=== PATIENT | female | born 1960 | race American Indian/Alaskan Native ===

== ENCOUNTER 2017-06-02 17:38 | Observation (INO) | payer BC ==
--- NOTE | 2017-06-02 17:43 | ED PDOC ---
Arrival/HPI - General Time Seen by Provider: 06/02/17 17:42 Historian: Patient - History of Present Illness Narrative History of Present Illness (Text): 06/02/17 17:42 A 56 year old female, whose past medical history includes liver transplant, and chronic lower back pain, brought into the emergency department by EMS for weakness and difficulty speaking. Patient last known well time was before bed as she reports waking up at 7am with these symptoms. Reports that she felkt difficulty speaking and walking. Saw her PMD who sent her into the ED for evaluation of CVA. Patient denies any trauma, fever, chills, nausea, vomiting, abdominal pain, urinary symptoms, chest pain, shortness of breath or any other complaints. PMD: Dr. Martin 06/02/17 20:58 Time/Duration: Other (this morning) Symptom Course: Worsening Quality: Other Context: Home Past Medical History - Provider Review Nursing Documentation Reviewed: Yes - Tetanus Immunization Tetanus Immunization: Unknown - Cardiac Hx Hypertension: Yes - Gastrointestinal Other/Comment: Auto-immune liver disease - Psychiatric Hx Substance Use: No - Surgical History Other/Comment: Liver transplant (2010) - Suicidal Assessment Feels Threatened In Home Enviroment: No Family/Social History - Physician Review Nursing Documentation Reviewed: Yes Family/Social History: No Known Family HX Hx Alcohol Use: No Hx Substance Use: No Hx Substance Use Treatment: No Allergies/Home Meds Allergies/Adverse Reactions: Allergies No Known Allergies Allergy (Verified 05/14/14 15:15) Home Medications: Home Meds Medication Instructions Recorded Confirmed Amlodipine Bes/Olmesartan Med 1 tab PO DAILY 05/14/14 05/14/14 [Anel 5 mg-20 mg] Metoprolol Succinate [Metoprolol 25 mg PO DAILY 05/14/14 05/14/14 Succinate] Review of Systems - Physician Review All systems were reviewed & negative as marked: Yes - Review of Systems Constitutional: absent: Fevers, Night Sweats Respiratory: absent: SOB Cardiovascular: absent: Chest Pain Gastrointestinal: absent: Abdominal Pain, Nausea, Vomiting Genitourinary Female: absent: Dysuria, Frequency, Hematuria Musculoskeletal: Back Pain Neurological: Gait Changes, Speech Changes. absent: Headache, Dizziness Physical Exam Vital Signs Reviewed: Yes Vital Signs Temp Pulse Resp BP Pulse Ox 06/02/17 18:11 66 18 133/73 98 06/02/17 17:43 97.6 F 65 18 149/93 H 100 Temperature: Afebrile Blood Pressure: Hypertensive Pulse: Regular Respiratory Rate: Normal Appearance: Positive for: Well-Appearing, Non-Toxic, Comfortable Pain Distress: None Mental Status: Positive for: Alert and Oriented X 3 Finger Stick Blood Glucose: 94 - Systems Exam Head: Present: Atraumatic, Normocephalic Pupils: Present: PERRL Extroacular Muscles: Present: EOMI Conjunctiva: Present: Normal Mouth: Present: Moist Mucous Membranes Neck: Present: Normal Range of Motion Respiratory/Chest: Present: Clear to Auscultation, Good Air Exchange. No: Respiratory Distress, Accessory Muscle Use Cardiovascular: Present: Regular Rate and Rhythm, Normal S1, S2. No: Murmurs Abdomen: Present: Normal Bowel Sounds. No: Tenderness, Distention, Peritoneal Signs Back: Present: Normal Inspection Upper Extremity: Present: Normal Inspection, Normal ROM, NORMAL PULSES. No: Cyanosis, Edema Lower Extremity: Present: Normal Inspection, NORMAL PULSES, Normal ROM. No: Edema Neurological: Present: GCS=15, CN II-XII Intact, Speech Normal, Motor Func Grossly Intact, Normal Sensory Function, Gait Normal Skin: Present: Warm, Dry, Normal Color. No: Rashes Psychiatric: Present: Alert, Oriented x 3, Normal Insight, Normal Concentration Medical Decision Making ED Course and Treatment: 06/02/17 17:42 Impression: A 56 year old female with worsening lower back pain. On evaluation, patient is able to ambulate without difficulty. Plan: -- Head CT -- Chest xray -- EKG -- Labs -- Urinalysis -- IV fluids -- Reassess and disposition Progress Notes: EKG shows NSR at 65 BPM with normal intervals, no ST changes. Interpreted by me. Report Date : 06/02/2017 20:43:00 EXAM: CT Head Without Intravenous Contrast Dictator : Nicho Lomax MD IMPRESSION: 1. No definite acute intracranial abnormality. 2. Incidental/non-acute findings are described above. 06/02/17 21:00 Trop negative. Patient is at baseline neurologically and speech is improved from arrival. Now NIHSS 0 from 1. Presentation concerning for tia. [facility] under hispitalist. 06/02/17 21:02 - Lab Interpretations Lab Results: 06/02/17 18:00 06/02/17 18:00 Lab Results 06/02/17 18:21: Blood Type O POSITIVE, Antibody Screen Negative, BBK History Checked No verified bt 06/02/17 18:03: POC Glucose (mg/dL) 94 06/02/17 18:00: Sodium 143, Potassium 3.7, Chloride 108 H, Carbon Dioxide 25, Anion Gap 14, BUN 13, Creatinine 0.8, Est GFR ( Amer) > 60, Est GFR (Non- Af Amer) > 60, Random Glucose 94, Calcium 9.8, Phosphorus 3.9, Magnesium 1.7, Total Bilirubin 0.2, AST 24, ALT 22, Alkaline Phosphatase 93, Troponin I < 0.01 , NT-Pro-B Natriuret Pep 84.3, Total Protein 7.7, Albumin 4.2, Globulin 3.5, Albumin/Globulin Ratio 1.2 06/02/17 18:00: PT 11.9, INR 1.00, APTT 29.7 06/02/17 18:00: WBC 7.6 D, RBC 4.34, Hgb 11.7 L, Hct 36.3, MCV 83.6, MCH 27.0, MCHC 32.2, RDW 14.2, Plt Count 269, MPV 8.8, Gran % 50.1, Lymph % (Auto) 43.6 H , [place] % (Auto) 4.6, Eos % (Auto) 1.6, Baso % (Auto) 0.1, Gran # 3.82, Lymph # 3.3, [place] # 0.4, Eos # 0.1, Baso # 0.01 - RAD Interpretation Radiology Orders: 06/02/17 17:43 HEAD W/O CONTRAST [CT] Stat CHEST PORTABLE [RAD] Stat - Medication Orders Current Medication Orders: Discontinued Medications Aspirin (Aspirin Chewable) 324 mg PO STAT STA Stop: 06/02/17 20:59 Sodium Chloride (Sodium Chloride 0.9%) 500 mls @ 999 mls/hr IV .Q31M STA Stop: 06/02/17 18:14 Last Admin: 06/02/17 18:03 Dose: 999 mls/hr eMAR Start Stop Document 06/02/17 18:03 HI (Rec: 06/02/17 18:24 AL [id number]) Intravenous Solution Start Date 06/02/17 Start Time 18:03 NIHSS Scale ([place]) Time Performed: 21:02 - How Severe is the Stoke Baseline Level of Consciousness: 0=Alert LOC to Questions: 0=Both comments correct LOC to commands: 0=Obeys both correctly Best Gaze: 0=Normal Visual: 0=No visual loss Facial: 0=Normal Motor Arm - Left: 0=No drift Motor Arm - Right: 0=No drift Motor Leg - Left: 0=No drift Motor Leg - Right: 0=No drift Limb Ataxia: 0=Absent Sensory: 0=Normal Best Language: 0=No aphasia Dysarthia: 1=Mild to moderate slurring Extinction & Inattention (Neglect): 0=Normal, no object Score: 1 Risk Level: Minor Stroke Risk rTPA Inclusion/Exclusion - Refusal of Treatment Patient Refused Treatment: No - Inclusion Criteria for Altepase Patient is 18 years or Older: Yes The Clinical Diagnosis of Ischemic Stroke That is Causing a Potentially Disabling Neurological Deficit: No Time of Onset is Well Established to be Less Than 270 Minute Before Treatment Would Begin: No Risk/Benefit Discussed With Patient/Family Member Present: No - Scribe Statement The provider has reviewed the documentation as recorded by the Adali Spann Provider Scribe Attestation: All medical record entries made by the Scribe were at my direction and personally dictated by me. I have reviewed the chart and agree that the record accurately reflects my personal performance of the history, physical exam, medical decision making, and the department course for this patient. I have also personally directed, reviewed, and agree with the discharge instructions and disposition. Disposition/Present on Arrival - Present on Arrival Any Indicators Present on Arrival: No History of DVT/PE: No History of Uncontrolled Diabetes: No Urinary Catheter: No History Surgical Site Infection Following: None - Disposition Have Diagnosis and Disposition been Completed?: Yes Diagnosis: Slurred speech Disposition: HOSPITALIZED Disposition Time: 21:03 Patient Plan: Observation Patient Problems: Current Active Problems Problem Status Onset Slurred speech Acute Condition: FAIR Referrals: Evangelina Martin MD [Primary Care Provider] - Follow up with primary
[2017-06-02] MEDS ORDERED: Sodium Chloride 0.9% 500 ML IV STA (17:44)
[2017-06-02 17:45] VITALS: BMI 36.8
[2017-06-02 18:18] LABS: BASO # 0.01 K/mm3 (0.0-2.0); BASO % 0.1 % (0.0-3.0); EOS # 0.1 (0.0-0.7); EOS % 1.6 % (1.5-5.0); GRAN # 3.82 (1.4-6.5); GRAN % 50.1 % (50.0-68.0); HEMOGLOBIN 11.7 g/dL (12.0-16.0); LYMPH # 3.3 (1.2-3.4); LYMPH % 43.6 % (22.0-35.0); MEAN CELL VOLUME 83.6 fl (80.0-105.0); MEAN CORPUSCULAR HGB CONC 32.2 g/dl (31.0-37.0); MEAN PLATELET VOLUME 8.8 fl (7.0-11.0); MONO # 0.4 (0.1-0.6); MONO % 4.6 % (1.0-6.0); RBC 4.34 10^6/uL (3.5-6.1); RED CELL DISTRIBUTION WIDTH 14.2 % (11.5-14.5); WHITE BLOOD COUNT 7.6 10^3/ul (4.5-11.0)
[2017-06-02 18:32] LABS: PARTIAL THROMBOPLASTIN TIME 29.7 Seconds (25.1-36.5); PROTHROMBIN TIME 11.9 SECONDS (9.4-12.5)
[2017-06-02 18:38] LABS: ALB/GLOB RATIO 1.2 (1.1-1.8); ALBUMIN 4.2 g/dL (3.0-4.8); ALT/SGPT 22 U/L (7-56); AST/SGOT 24 U/L (14-36); BLOOD UREA NITROGEN 13 mg/dL (7-21); CALCIUM 9.8 mg/dL (8.4-10.5); GFR AFRICAN-AMERICAN > 60; GFR NON-AFRICAN AMERICAN > 60; MAGNESIUM 1.7 mg/dL (1.7-2.2)
[2017-06-02 18:43] LABS: B-TYPE NATRIURETIC PEPTIDE 84.3 pg/mL (0-450); TROPONIN I < 0.01 ng/mL
--- NOTE | 2017-06-02 20:44 | CT ---
EXAM: CT Head Without Intravenous Contrast CLINICAL HISTORY: 56 years old, female; Signs and symptoms; Malaise or fatigue; Additional info: Fatigued TECHNIQUE: Axial computed tomography images of the head/brain without intravenous contrast. All CT scans at this facility use one or more dose reduction techniques, viz.: automated exposure control; ma/kV adjustment per patient size (including targeted exams where dose is matched to indication; i.e. head); or iterative reconstruction technique. Coronal and sagittal reformatted images were created and reviewed. COMPARISON: No relevant prior studies available. FINDINGS: Brain: Minimal atrophy. No intracranial hemorrhage. No mass. No definite edema. Ventricles: No hydrocephalus. Bones/joints: No acute fracture. Soft tissues: Unremarkable. Vasculature: Few foci of air about cavernous sinus, nonspecific but possibly iatrogenic. Sinuses: No acute sinusitis. Mastoid air cells: No mastoid effusion. Orbits: Unremarkable as visualized. IMPRESSION: 1. No definite acute intracranial abnormality. 2. Incidental/non-acute findings are described above.
[2017-06-02 21:18] LABS: URINE BILIRUBIN NEGATIVE (NEGATIVE); URINE BLOOD NEGATIVE (NEGATIVE); URINE GLUCOSE (UA) NEGATIVE (NEGATIVE); URINE LEUKOCYTE ESTERASE MODERATE Leu/uL (NEGATIVE); URINE NITRATE NEGATIVE (NEGATIVE); URINE PROTEIN NEGATIVE mg/dL (<30 mg/dL); URINE UROBILINOGEN 0.2 E.U./dL (<1 E.U./dL)
[2017-06-02 21:21] LABS: URINE APPEARANCE CLEAR (CLEAR); URINE COLOR YELLOW (YELLOW)
[2017-06-02 21:45] LABS: URINE RBC 0 - 2 /hpf (0-2)
[2017-06-02 21:46] LABS: URINE BACTERIA FEW (NEG); URINE EPITHELIAL CELLS 0 - 2 /hpf (0-5)
[2017-06-02 22:59] LABS: BARBITURATES, UR NEGATIVE (NEGATIVE); BENZODIAZEPINES, UR NEGATIVE (NEGATIVE); OPIATES, UR NEGATIVE (NEGATIVE); PHENCYCLIDINE, UR NEGATIVE (NEGATIVE)
--- NOTE | 2017-06-03 00:28 | CP.PCM.HP ---
History of Present Illness - History of Present Illness History of Present Illness: Ms. Bruce is a 56 year old AAF with a past medical history significant for HTN, chronic LBP and liver transplant who presents with one episode of LE weakness, confusion and increased somnolence earlier this morning approximately 12 hours [employer]. Patient reports that she awoke at 0600 on 06/02 in her normal state of health. She began getting ready for work and sat down at her kitchen table at approximately 0700 when she suddenly felt confused and somnolent. She states that she recalls calling her place of employment to inform them that she would not be able to come into work immediately after but then does not recall anything until she awoke at her kitchen table at approximately 1300. When she awoke, she stood up from the table to walk upstairs but experienced extreme weakness in both of her lower extremities requiring her to use the stair railing to remain upright. She then drove herself to an Urgent Care facility, as her PMD was not in his office, where she was told that she would need to be evaluated at the hospital which prompted her to come to the [facility] ED. She endorses dysarthria and blurry vision throughout this period and for an hour after she arrived to the [facility] ED. She denies any associated falls, syncope, chest pain, palpitations, or SOB. In the ED, patient was found to be afebrile and HDS with a CT head, EKG and chest x-ray showing no acute abnormalities. A CBC, CMP, UA and UDS also showed no significant abnormalities. Currently, patient is alert and oriented to person, place, time and event and also without facial droop or dysarthria. She denies ever having the previously mentioned symptoms ever before in the past. She denies fever, chills, headache, changes in her vision, rhinorrhea, ear pain/discharge, sore throat, dysphagia, emma pain, palpitations, leg swelling, orthopnea, SOB, cough, hemoptysis, abdominal pain, N/V, diarrhea, constipation, melena, hematochezia, burning/pain with urination, urinary frequency, hematuria, skin changes, joint pain, or any numbness/tingling/weakness of any extremity. 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 Martin Rn Visiting: Dr. Castillo Present on Admission - Present on Admission Any Indicators Present on Admission: No Review of Systems - Review of Systems Review of Systems: As stated in HPI, otherwise negative Past Patient History - Tetanus Immunizations Tetanus Immunization: Unknown - Past Social History Smoking Status: Never Smoked - CARDIAC Hx Hypertension: Yes - GASTROINTESTINAL Other/Comment: Auto-immune liver disease - PSYCHIATRIC Hx Substance Use: No - SURGICAL HISTORY Other/Comment: Liver transplant (2010) Meds Allergies/Adverse Reactions: Allergies Allergy/AdvReac Type Severity Reaction Status Date / Time No Known Allergies Allergy Verified 05/14/14 15:15 Physical Exam - Constitutional Appears: Non-toxic, No Acute Distress - Head Exam Head Exam: ATRAUMATIC, NORMAL INSPECTION, NORMOCEPHALIC - Eye Exam Eye Exam: EOMI, Normal appearance, PERRL. absent: Conjunctival injection, Nystagmus, Periorbital swelling, Periorbital tenderness, Scleral icterus Pupil Exam: NORMAL ACCOMODATION, PERRL. absent: Fixed, Irregular, Miosis, Mydriatic, Unequal - ENT Exam ENT Exam: Mucous Membranes Moist, Normal Exam, Normal External Ear Exam, Normal Oropharynx - Neck Exam Neck exam: Positive for: Full Rom, Normal Inspection. Negative for: Lymphadenopathy, Meningismus, Tenderness, Thyromegaly - Respiratory Exam Respiratory Exam: Wheezes (Mild, end expiratory and located in the upper lung dahs bilaterally), NORMAL BREATHING PATTERN. absent: Accessory Muscle Use, Chest Wall Tenderness, Decreased Breath Sounds, Clear to Auscultation Bilateral , Prolonged Expiratory Phase, Rales, Rhonchi, Respiratory Distress, Stridor - Cardiovascular Exam Cardiovascular Exam: REGULAR RHYTHM, RRR, +S1, +S2. absent: Bradycardia, Tachycardia, Clicks, Diastolic murmur, Gallop, Irregular Rhythm, JVD, Rubs, +S4 , Systolic Murmur - GI/Abdominal Exam GI & Abdominal Exam: Normal Bowel Sounds, Soft. absent: Bruit, Diminished Bowel Sounds, Distended, Firm, Guarding, Hernia, Hyperactive Bowel Sounds, Hypoactive Bowel Sounds, Mass, Organomegaly, Pulsatile Mass, Rebound, Rigid, Tenderness Additional comments: Scar in RUQ representing open liver transplant surgery - Extremities Exam Extremities exam: Positive for: full ROM, normal capillary refill, normal inspection, pedal pulses present. Negative for: calf tenderness, joint swelling , pedal edema, tenderness - Back Exam Back exam: FULL ROM, NORMAL INSPECTION, tenderness. absent: CVA tenderness (L) , CVA tenderness (R), muscle spasm, paraspinal tenderness, rash noted, vertebral tenderness - Neurological Exam Neurological exam: Alert, CN II-XII Intact, Normal Gait, Oriented x3, Reflexes Normal - Psychiatric Exam Psychiatric exam: Normal Affect, Normal Mood - Skin Skin Exam: Dry, Intact, Normal Color, Warm Results - Vital Signs Recent Vital Signs: Last Vital Signs Temp 98.4 F 06/03/17 00:00 Pulse 59 L 06/03/17 00:00 Resp 20 06/03/17 00:00 BP 115/69 06/03/17 00:00 Pulse Ox 96 06/03/17 00:00 - Labs Result Diagrams: 06/02/17 18:00 06/02/17 18:00 Labs: Laboratory Results - last 24 hr 06/02/17 22:33 Urine Opiates Screen Negative Urine Methadone Screen Negative Ur Barbiturates Screen Negative Ur Phencyclidine Scrn Negative Ur Amphetamines Screen Negative U Benzodiazepines Scrn Negative U Oth Cocaine Metabols Negative U Cannabinoids Screen Negative - EKG Data EKG Interpreted by: ER Physician EKG shows normal: Sinus rhythm, Intervals, ST-T waves Rate: Normal Assessment & Plan - Assessment and Plan (Free Text) Assessment: 56 year old AAF with a past medical history significant for HTN, chronic LBP and liver transplant who presents with one episode of LE weakness, confusion and increased somnolence earlier this morning approximately 12 hours [employer]. In the ED, patient was found to be afebrile and HDS with a CT head, EKG and chest x -ray showing no acute abnormalities. A CBC, CMP, UA and UDS also showed no significant abnormalities. Patient noted to have an NIHSS score of 1 on arrival and currently with an NIHSS score of 0. Plan: 1. TIA -CT Head showing no acute intracranial abnormality; Chest X-Ray pending radiologist interpretation -EKG showing NSR at -CBC, CMP, UA, UDS without any significant abnormalities -Raji-Hallpike negative -Repeat CT Head in AM -Lipid panel pending -Echo, Carotid/Vertebral Duplex and Orthostatic VS pending -Neurochecks Q4H -Fall risk precautions -Nursing swallow screen passed -Neurology consulted 2. Wheezing -Chest X-Ray pending radiologist interpretation -Duonebs 3ml IH [id number] GI Prophylaxis: Protonix DVT Prophylaxis: SCD's Diet: Heart Healthy Patient seen and case discussed with attending, Dr. Emiliano Rivera. - Date & Time Date: 06/02/17 Time: 11:00 Decision To Admit - Pt Status Changed To: Hospital Disposition Of: Observation - . Bed Request Type: Telemetry
[2017-06-03] MEDS: Albuterol-Ipratrop 3 mg / 0.5 (3 ml) UD IH SCH ×4 (01:30→20:13)
[2017-06-03] MEDS: Pantoprazole 40 mg EC Tab PO SCH (06:54)
[2017-06-03 07:22] LABS: BASO # 0.01 K/mm3 (0.0-2.0); BASO % 0.1 % (0.0-3.0); EOS # 0.1 (0.0-0.7); EOS % 0.9 % (1.5-5.0); GRAN # 3.89 (1.4-6.5); HEMOGLOBIN 11.3 g/dL (12.0-16.0); LYMPH # 2.7 (1.2-3.4); LYMPH % 38.7 % (22.0-35.0); MEAN CELL VOLUME 82.9 fl (80.0-105.0); MEAN CORPUSCULAR HEMOGLOBIN 26.5 pg (25.0-35.0); MEAN CORPUSCULAR HGB CONC 31.9 g/dl (31.0-37.0); MEAN PLATELET VOLUME 8.4 fl (7.0-11.0); MONO # 0.3 (0.1-0.6); MONO % 4.3 % (1.0-6.0); RBC 4.27 10^6/uL (3.5-6.1); RED CELL DISTRIBUTION WIDTH 14.1 % (11.5-14.5)
[2017-06-03 07:33] LABS: ALB/GLOB RATIO 1.2 (1.1-1.8); ALT/SGPT 25 U/L (7-56); AST/SGOT 21 U/L (14-36); BLOOD UREA NITROGEN 9 mg/dL (7-21); CALCIUM 9.6 mg/dL (8.4-10.5); GFR AFRICAN-AMERICAN > 60; GFR NON-AFRICAN AMERICAN > 60; HDL CHOLESTEROL 33 mg/dL (29-60)
[2017-06-03 07:39] LABS: LDL CHOLESTEROL 133 mg/dL (0-129)
--- NOTE | 2017-06-03 09:50 | RAD ---
HISTORY: fatigued COMPARISON: No prior. FINDINGS: LUNGS: No active pulmonary disease. PLEURA: No significant pleural effusion identified, no pneumothorax apparent. CARDIOVASCULAR: Normal. OSSEOUS STRUCTURES: No significant abnormalities. VISUALIZED UPPER ABDOMEN: Normal. OTHER FINDINGS: None. IMPRESSION: No active disease.
--- NOTE | 2017-06-03 11:35 | CP.PCM.CON ---
History of Present Illness - History of Present Illness History of Present Illness: 56 yr old woman who is here for dysarthria and loss of consciousness yesterday morning. She was not found to have urinary incontinence, or any signs of seizure, but did have persistent left arm weakness that resolved. She was not a TPA candidate but continues to have dysarthria and is here for stroke workup. Full consult is dictated. Please see dictation for further details. Past Patient History - Tetanus Immunizations Tetanus Immunization: Unknown - Past Social History Smoking Status: Never Smoked - CARDIAC Hx Hypertension: Yes - MUSCULOSKELETAL/RHEUMATOLOGICAL Hx Falls: No - GASTROINTESTINAL Other/Comment: Auto-immune liver disease - PSYCHIATRIC Hx Substance Use: No - SURGICAL HISTORY Other/Comment: Liver transplant (2010) Meds Allergies/Adverse Reactions: Allergies Allergy/AdvReac Type Severity Reaction Status Date / Time No Known Allergies Allergy Verified 05/14/14 15:15 - Medications Medications: Current Medications Albuterol/Ipratropium (Duoneb 3 Mg/0.5 Mg (3 Ml) Ud) 3 ml IH [id number] [facility] Last Admin: 06/03/17 08:29 Dose: 3 ml Atorvastatin Calcium (Lipitor) 40 mg PO DIN ODETTE Pantoprazole Sodium (Protonix Ec Tab) 40 mg PO 0600 [facility] Last Admin: 06/03/17 06:54 Dose: 40 mg Tacrolimus (Prograf Cap) 1 mg PO Q12 [facility] Results - Vital Signs Recent Vital Signs: Last Vital Signs Temp 98.4 F 06/03/17 06:00 Pulse 80 06/03/17 06:00 Resp 20 06/03/17 06:00 BP 103/63 06/03/17 06:00 Pulse Ox 99 06/03/17 06:00 - Labs Result Diagrams: 06/03/17 07:05 06/03/17 07:05 Labs: Laboratory Results - last 24 hr 06/02/17 06/02/17 06/03/17 22:33 23:28 07:05 WBC RBC Hgb Hct MCV MCH MCHC RDW Plt Count MPV Gran % Lymph % (Auto) [place] % (Auto) Eos % (Auto) Baso % (Auto) Gran # Lymph # [place] # Eos # Baso # ESR Sodium Potassium Chloride Carbon Dioxide Anion Gap BUN Creatinine Est GFR ( Amer) Est GFR (Non-Af Amer) POC Glucose (mg/dL) 116 H Random Glucose Calcium Total Bilirubin AST ALT Alkaline Phosphatase Total Protein Albumin Globulin Albumin/Globulin Ratio Triglycerides Cholesterol LDL Cholesterol Direct HDL Cholesterol Urine Opiates Screen Negative Urine Methadone Screen Negative Ur Barbiturates Screen Negative Ur Phencyclidine Scrn Negative Ur Amphetamines Screen Negative U Benzodiazepines Scrn Negative U Oth Cocaine Metabols Negative U Cannabinoids Screen Negative Blood Type Confirm O POSITIVE 06/03/17 06/03/17 06/03/17 07:05 07:05 08:00 WBC 7.0 RBC 4.27 Hgb 11.3 L Hct 35.4 L MCV 82.9 MCH 26.5 MCHC 31.9 RDW 14.1 Plt Count 246 MPV 8.4 Gran % 56.0 Lymph % (Auto) 38.7 H [place] % (Auto) 4.3 Eos % (Auto) 0.9 L Baso % (Auto) 0.1 Gran # 3.89 Lymph # 2.7 [place] # 0.3 Eos # 0.1 Baso # 0.01 ESR 45 H Sodium 142 Potassium 3.7 Chloride 108 H Carbon Dioxide 23 Anion Gap 14 BUN 9 Creatinine 0.8 Est GFR ( Amer) > 60 Est GFR (Non-Af Amer) > 60 POC Glucose (mg/dL) Random Glucose 81 Calcium 9.6 Total Bilirubin 0.4 AST 21 ALT 25 Alkaline Phosphatase 93 Total Protein 7.4 Albumin 4.0 Globulin 3.4 Albumin/Globulin Ratio 1.2 Triglycerides 154 Cholesterol 190 LDL Cholesterol Direct 133 H HDL Cholesterol 33 Urine Opiates Screen Urine Methadone Screen Ur Barbiturates Screen Ur Phencyclidine Scrn Ur Amphetamines Screen U Benzodiazepines Scrn U Oth Cocaine Metabols U Cannabinoids Screen Blood Type Confirm 06/03/17 08:12 WBC RBC Hgb Hct MCV MCH MCHC RDW Plt Count MPV Gran % Lymph % (Auto) [place] % (Auto) Eos % (Auto) Baso % (Auto) Gran # Lymph # [place] # Eos # Baso # ESR Sodium Potassium Chloride Carbon Dioxide Anion Gap BUN Creatinine Est GFR ( Amer) Est GFR (Non-Af Amer) POC Glucose (mg/dL) 75 Random Glucose Calcium Total Bilirubin AST ALT Alkaline Phosphatase Total Protein Albumin Globulin Albumin/Globulin Ratio Triglycerides Cholesterol LDL Cholesterol Direct HDL Cholesterol Urine Opiates Screen Urine Methadone Screen Ur Barbiturates Screen Ur Phencyclidine Scrn Ur Amphetamines Screen U Benzodiazepines Scrn U Oth Cocaine Metabols U Cannabinoids Screen Blood Type Confirm Assessment & Plan - Assessment and Plan (Free Text) Plan: 56 y rold woman with differential of ischemic stroke in [place] region, or with psych overlay, seizure, who is here for stroke workup. She has high risk factors in light of liver transplant, hypertension, and age. We will order stroke workup and follow. Please see dictation for further Plan: 1. MRi Brain 2. Carotid Dopplers 3. Keep BP at around 180-190/90 4. Aspirin 325 mg po daily 5. Hold BP meds 6. IV fluids normal saline 100 ccs per hour 7. stroke in a young person workup: protein c protein s antithrombin 3 factor 5 leiden 8. pt/st 9. If mri shows stroe, would do bubble study for pfo.
[2017-06-03] MEDS ORDERED: Iodixanol 320 mg/ml 150 ml Bottle IV ONE (13:43)
--- NOTE | 2017-06-03 15:39 | CT ---
PROCEDURE: CT Angiography of the neck with contrast HISTORY: TIA COMPARISON: None available. TECHNIQUE: Contiguous axial images of the neck were obtained from the level of the skull-base to the superior mediastinum in the arteriographic phase of enhancement. Coronal and sagittal reformats or also generated. IV contrast dose: Radiation Dose - DLP: mGy-cm This CT exam was performed using one or more of the following dose reduction techniques: Automated exposure control, adjustment of the mA and/or kV according to patient size, and/or use of iterative reconstruction technique. FINDINGS: RIGHT CAROTID ARTERIES: Common Carotid Artery: Normal. Carotid Bifurcation: Normal. Internal Carotid Artery:Normal. External Carotid Artery (proximal branches): Normal. LEFT CAROTID ARTERIES: Common Carotid Artery: Normal. Carotid Bifurcation: Normal. Internal Carotid Artery:Normal. External Carotid Artery (proximal branches): Normal. VERTEBRAL ARTERIES: Right Vertebral Artery: Normal. Left Vertebral Artery: Normal. OTHER FINDINGS: None. IMPRESSION: Normal CT Angiography of the neck. PROCEDURE: CT Angiography of the Brain. HISTORY: TIA COMPARISON: None available. TECHNIQUE: CT angiography of the intracranial arteries was performed. Coronal and sagittal maximum intensity projection reformated images were generated. This CT exam was performed using one or more of the following dose reduction techniques: Automated exposure control, adjustment of the mA and/or kV according to patient size, and/or use of iterative reconstruction technique. FINDINGS: INTERNAL CEREBRAL ARTERIES: Unremarkable. The skull base, petrous, cavernous and supraclinoid segments are bilaterally widely patent. ANTERIOR CEREBRAL ARTERIES: Unremarkable. A1 and A2 segments are widely patent. Smaller distal branches unremarkable, as visualized. MIDDLE CEREBRAL ARTERIES: Unremarkable. M1 and M2 segments are widely patent. Perisylvian branches grossly symmetric. POSTERIOR CIRCULATION: Basilar Artery: Unremarkable. Distal Vertebral Arteries: Unremarkable. Posterior Cerebral Arteries: Unremarkable. Posterior Inferior Cerebellar Arteries: Unremarkable. ANEURYSM/ VASCULAR MALFORMATIONS: None. OTHER FINDINGS: None. IMPRESSION: Unremarkable CT Angiography of the Brain.
--- NOTE | 2017-06-03 15:55 | US ---
PROCEDURE: Bilateral carotid artery duplex ultrasound HISTORY: Carotid stenosis TIA PHYSICIAN(S): Catrachito Shane MD. TECHNIQUE: Duplex sonography and color-flow Doppler were used to evaluate the carotid bifurcations and limited segments of the vertebral arteries bilaterally. FINDINGS: There is mild smooth heterogeneous plaque noted at the carotid bifurcations bilaterally. The peak systolic velocity in the proximal right internal carotid artery is 63 cm/sec. This corresponds to a 20 to 39% proximal right ICA stenosis. Normal systolic velocities are noted in the proximal right external carotid artery. There is antegrade flow in the right vertebral artery. The peak systolic velocity in the proximal left internal carotid artery is 77 cm/sec. This corresponds to a 20 to 39% proximal left ICA stenosis. Normal systolic velocities are noted in the proximal left external carotid artery. There is antegrade flow in the left vertebral artery. IMPRESSION: 1. Bilateral 20-39% proximal ICA stenoses. 2. Antegrade flow in both vertebral arteries.
--- NOTE | 2017-06-03 17:09 | CARD ---
APPROVED REPORT EXAM: Two-dimensional and M-mode echocardiogram with Doppler and color Doppler. INDICATION CVA/TIA 2D DIMENSIONS Left Atrium (2D)4.2 (1.6-4.0cm)IVSd1.2 (0.7-1.1cm) LVDd4.4 (3.9-5.9cm)PWd1.1 (0.7-1.1cm) LVDs3.3 (2.5-4.0cm)FS (%) 25.9 % LVEF (%)51.1 (>50%) M-Mode DIMENSIONS Aortic Root2.70 (2.2-3.7cm)Aortic Cusp Exc.1.60 (1.5-2.0cm) Aortic Valve AoV Peak Raxdkrkh930.0cm/Tanner Peak GR.12mmHg Mitral Valve MV E Nzoeyfbm02.9cm/sMV A Vujfvzdk41.6cm/sE/A ratio1.2 TDI Lateral E' Peak V11.80cm/sMedial E' Peak V9.85cm/sE/Lateral E'6.9 E/Medial E'8.3 Pulmonary Valve PV Peak Gxlwfccz39.5cm/sPV Peak Grad.2mmHg Tricuspid Valve TR Peak Zpjaoxkx576iv/sRAP [id number] Peak Gr.27mmHg [id number] LEFT VENTRICLE The left ventricle is normal size. There is borderline concentric left ventricular hypertrophy. Left ventricle systolic function is borderline. There is normal LV segmental wall motion. The left ventricular diastolic function is normal. RIGHT VENTRICLE The right ventricle is normal size. There is normal right ventricular wall thickness. The right ventricular systolic function is normal. ATRIA The left atrium is mildly dilated. The right atrium is mildly dilated. The atrial septum is aneurysmal. AORTIC VALVE The aortic valve is mildly thickened. No aortic regurgitation is present. There is no aortic valvular stenosis. MITRAL VALVE Mitral regurgitation is mild. TRICUSPID VALVE There is mild tricuspid regurgitation. There is mild pulmonary hypertension. GREAT VESSELS The aortic root is normal in size. The IVC is normal in size and collapses >50% with inspiration. PERICARDIAL EFFUSION There is no pericardial effusion. <Conclusion> The left ventricle is normal size. There is borderline concentric left ventricular hypertrophy. Left ventricle systolic function is borderline. There is normal LV segmental wall motion. The atrial septum is aneurysmal. Mitral regurgitation is mild. There is mild tricuspid regurgitation. There is mild pulmonary hypertension.
[2017-06-03] MEDS: Sodium Chloride 0.9% 1,000 ML IV SCH ×3 (17:51→22:27)
--- NOTE | 2017-06-03 18:48 | MRI ---
PROCEDURE: MRI BRAIN WITHOUT CONTRAST HISTORY: TIA COMPARISON: Comparison made with CT scan brain dated 06/02/2017. TECHNIQUE: Multiplanar, multisequence MR images of the brain were obtained without intravenous contrast enhancement. Study is limited by motion artifact. FINDINGS: HEMORRHAGE: No acute parenchymal, subarachnoid or extra-axial hemorrhage. No hemosiderin deposition is identified on gradient echo weighted sequence DWI: No evidence of an acute or early subacute infarction seen on diffusion imaging. . BRAIN PARENCHYMA: There is a tiny elliptical shaped focus of increased T2 signal in the left frontal subcortical white matter best seen on axial FLAIR sequence series 5, image number 17 that is nonspecific though may represent small chronic lacunar-type infarct however sequela of old trauma migraine headaches or post infectious/ inflammatory etiologies to be considered. No other definitive focal areas of abnormal signal seen. Ventricular and sulcal size are within range of normal this patient's stated age. Midline structures unremarkable. VENTRICLES: No obstructive hydrocephalus. CRANIUM: No acute calvarial ORBITS: Abnormalities orbits and contents unremarkable. 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 VASCULAR SYSTEM: Visualized major vascular flow voids at skull base patent. OTHER FINDINGS: None. IMPRESSION: Slightly limited motion degraded study. No acute intracranial hemorrhage or infarct. There is a tiny elliptical shaped focus of increased T2 signal left frontal subcortical white matter which nonspecific and of uncertain etiology though differential diagnosis would include tiny chronic lacunar type infarct, sequela of old trauma migraine headache or post infectious/ inflammatory etiologies.
--- NOTE | 2017-06-03 20:35 | CARD ---
APPROVED REPORT EKG Measurement Heart [id number] <Conclusion> Normal sinus rhythm Normal ECG
--- NOTE | 2017-06-04 02:46 | CON ---
DATE: NEUROLOGY CONSULTATION ATTENDING PROVIDER: Latasha Gonzales MD HISTORY OF PRESENT ILLNESS: Ms. Bruce is a 56-year-old right-handed woman with past medical history of hypertension, chronic low back pain, status post liver transplant, and status post autoimmune disease, etiology undefined, who presented with dysarthria and left extremity weakness. 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 Apparently, she lost consciousness for several minutes or several hours, we are not clear about the exact time of duration. When she stepped, she was able walk upstairs, but she had weakness in both of her legs, but she was somehow able to drive herself to an urgent care facility and then [facility]. In the Emergency Room, she had dysarthria and blurry vision. There was, however, no weakness noted. There was no headache. There was no nausea. There was no vomiting. There was no chest pain. There was no diaphoresis. There was no facial droop. This patient was not deemed to be a candidate due to the above findings. On examination today, the patient denies any headache. She is in an elevated mood. There is mild dysarthria noted, which fluctuates on and off, although her level of consciousness remains awake, alert, and oriented x3. PAST MEDICAL HISTORY: High blood pressure, chronic low back pain, liver transplant, and hyperlipidemia. PAST SURGICAL HISTORY: Liver transplant in 2010. FAMILY HISTORY: Mother has diabetes. There is no history of stroke in the young persons in her family. SOCIAL HISTORY: She does not smoke. There is no alcohol or illicit drug use. She lives at home with her mother. 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 ALLERGIES: NO KNOWN DRUG ALLERGIES. HOME MEDICATIONS: She is on albuterol, atorvastatin, pantoprazole, tacrolimus, aspirin, and sodium chloride. REVIEW OF SYSTEMS: As above. PHYSICAL EXAMINATION: VITAL SIGNS: As follows; temperature 98.4, pulse 59, respiratory rate 20, and blood pressure 115/96. GENERAL: She is alert and oriented x3. NEUROLOGIC: Pupils are 3 mm, equal and reactive to light. Extraocular movements are intact. Visual dash are full. Cranial nerves II through XII are normal. Speech is fluent. Mini mental state is 30/30. Clock drawing and pentagons are normal. There is no constructional, ideational or ideomotor apraxia. Motor: Tone is normal. Strength is normal in upper and lower bilaterally. There is some dysarthria noted, which fluctuates and returns to normal and once again becomes dysarthric. She can name and she can repeat well both simple and complex . Sensory is intact to fine touch, position, vibration sense. There is no extension. Cerebellar: [id number], there is dysmetria. There is a tardive dyskinesia. Gait is normal, is right base. There is no ataxia. Deep tendon reflexes are +1 in upper and lower bilaterally. Toes are downgoing. There is no clonus. LABORATORY DATA: Current labs; WBC is 7.6, hemoglobin 11.3, hematocrit 35.4, MCV 80.9, MCHC 31.1, platelet count 246, and lymphocytes at 38.7. ESR is 45. PT is 11.9, INR is 1.0, and PTT is 29.7. Sodium is 142, potassium is 3.7, chloride is 108, BUN is 9, and creatinine is 0.8. Cholesterol 190, LDL is 133, and HDL is 33. AST is 21, ALT is 25, and alkaline phosphatase is 93. Calcium is 11.8, phosphorus is 3.9, magnesium 1.7, and total bili is 0.2. Initial CT of the head was done and it showed the following; no definite acute intracranial abnormality, minimal atrophy, no intracranial hemorrhage, no mass or lesion. In addition, there is also iatrogenic. IMPRESSION: This is a 56-year-old right handed woman with differential of left middle cerebral artery Broca A1 division ischemic event/lacunar. It does appear that she has some fluctuating symptoms, which may be indicative of underlying anxiety. We will continue to complete stroke workup and further evaluate. PLAN: 1. MRI of the brain. 2. CTA. Carotid Dopplers, echo. If the MRI is normal, we will perform echo bubble study. In addition, we will do the following stroke in young person workup, protein C, protein S, antithrombin III factor, factor V Leiden, and von Willebrand factor as well. Start aspirin 325 mg p.o. daily. EEG as well in terms of loss of consciousness. Physical therapy and speech therapy is needed. DVT prophylaxis with subcu heparin. Thank you for this interesting consultation. We will continue to follow. Beck Joya MD
--- NOTE | 2017-06-04 04:32 | CON ---
DATE: 06/03/2017 She is being seen today for consultation. PRESENTATION: The patient is a 56-year-old -N[place] female, with average height and overweight, seen at bedside. The patient originally was admitted to the hospital for an episode of left-sided weakness, confusion, and increased somnolence. She has a past medical history of hypertension, chronic LVP, and post liver transplant. The psychiatric consultation was called for a question of whether or not the patient is malingering. When seen, the patient is cooperative. She is very positive in conversation, everything is fabulous. 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 She is able to support herself and she does enjoy her job. She denies ever being hospitalized psychiatrically, ever having any suicide attempts; however, she has been seeing Dr. Tori Berumen for many, many years for psychiatric medications. She indicates that she is on Lexapro t.i.d. She has had trouble since they have not ordered it for her. I reassured her that I will call her pharmacy which is the [facility] and get through her medications ordered for her. She indicates that her diagnosis is depression, really just a "serotonin thing." She indicates that she has been through family issues and counseling and she is just great. She does not want to go into what any of those issues might be, says everything is fine and she is doing very well. Medically, she is post liver transplant from 2010. She had that done at [facility]. She said it was just something that just happened. She has never abused alcohol or drugs. She did not have any kind of an illness. The 2% of the population this can happen to and it happened to her. She denies any past or current history of drugs or alcohol. She has no legal history, has never served in the , and denies any family history of any kind of psychiatric problems. The patient indicates that she is artistic and sensitive that she does not like to be involved with other people's drama. She grew up in [place], [place], and then her family moved to [place]. Her parents stayed together and everyone in her family is a professional, she shares with me. She is number two of five siblings and they are optical glass sawyer, they are teachers, and everyone has done very well. She indicates that her childhood was happy. She did very well in school. She had a lot of friends and took part in school activities. She had a regular education program and graduated on time. She indicated that she attended college and has a degree. She is not and has no children. 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 She wants to start a business for children. PHYSICAL EXAMINATION: VITAL SIGNS: Her current vital signs include a temperature of 98.4, pulse rate of 63, blood pressure of 130/76, respiratory rate of 20, and an O2 saturation of 99. In terms of new results, her last glucose level was 110. She is being worked up for any reason as to why should have had these symptoms when she came in and so far there has been no definitive answer according to the patient. MENTAL STATUS EXAM: The patient is alert and oriented x2. Her eye contact is good. Her behavior is cooperative. Her speech rate and volume are within normal limits. Her mood is expansive. Her affect is full. Her thoughts are somewhat goal directed, but there is a tangential and circumstantial quality to the conversation. She adamantly denies being suicidal or homicidal. She denies the presence of hallucinations, delusions or paranoia. Her concentration and her focus appears somewhat scattered to me. She feels it is fine. Her appetite, she indicates is normal, and she indicates that she is sleeping well. DIAGNOSTIC IMPRESSION: The patient indicates her previous diagnosis was depression. She has the appearance of hypomania today, so she may have a bipolar disorder in reality. PLAN: I called the [facility]. Her current medications are Seroquel 25 mg one-half at bedtime, which was filled on 05/24/2017 and Lexapro 10 mg three in the morning, which was filled on 05/17/2017, each was 30-day supply and that was from Dr. Berumen. She additionally was on blood pressure medications. This has not been filled after appointment in April, until and unless she was getting medications from somewhere else. She stopped taking her blood pressure medicines according to the pharmacist. I ordered this medication for the patient, so she should get the Seroquel tonight and Lexapro starting in the morning. The patient is not suicidal or homicidal, and so is not in any imminent danger of hurting herself or others. She does have the appearance of hypomania, but she is engaged in reality. She denies any psychotic symptoms, and again she is not suicidal or homicidal. She does appear to have limited judgment in terms of her illness, but she does appear to be able to at this point make her own decisions. I questioned the patient was to whether or not I could speak with any family members for collateral, and she was not willing to get me that information, indicates that she wants her privacy, which is so right. We will continue to follow the patient. Dr. Ryan will see her on the weekend. Thank you for the consult. Salina Valentin APN
[2017-06-04] MEDS: Sodium Chloride 0.9% 1,000 ML IV SCH (07:14)
[2017-06-04] MEDS: Pantoprazole 40 mg EC Tab PO SCH (07:16)
[2017-06-04 07:32] LABS: BASO # 0.01 K/mm3 (0.0-2.0); BASO % 0.1 % (0.0-3.0); EOS # 0.1 (0.0-0.7); EOS % 1.9 % (1.5-5.0); GRAN # 3.84 (1.4-6.5); HEMOGLOBIN 11.1 g/dL (12.0-16.0); LYMPH # 2.5 (1.2-3.4); LYMPH % 36.2 % (22.0-35.0); MEAN CORPUSCULAR HEMOGLOBIN 26.6 pg (25.0-35.0); MEAN CORPUSCULAR HGB CONC 32.1 g/dl (31.0-37.0); MEAN PLATELET VOLUME 8.6 fl (7.0-11.0); MONO # 0.4 (0.1-0.6); MONO % 5.8 % (1.0-6.0); RBC 4.17 10^6/uL (3.5-6.1); RED CELL DISTRIBUTION WIDTH 14.1 % (11.5-14.5); WHITE BLOOD COUNT 6.9 10^3/ul (4.5-11.0)
[2017-06-04 07:47] LABS: ALB/GLOB RATIO 1.2 (1.1-1.8); ALBUMIN 3.8 g/dL (3.0-4.8); ALT/SGPT 21 U/L (7-56); AST/SGOT 23 U/L (14-36); BLOOD UREA NITROGEN 9 mg/dL (7-21); CALCIUM 9.5 mg/dL (8.4-10.5); GFR AFRICAN-AMERICAN > 60; GFR NON-AFRICAN AMERICAN > 60
[2017-06-04] MEDS: Albuterol-Ipratrop 3 mg / 0.5 (3 ml) UD IH SCH ×2 (08:33→13:08)
[2017-06-04] MEDS ORDERED: Aspirin 325 mg EC Tablets PO SCH (10:00)
--- NOTE | 2017-06-04 12:54 | CP.PCM.PN ---
Subjective - Date & Time of Evaluation Date of Evaluation: 06/04/17 Time of Evaluation: 10:00 - Subjective Subjective: Patient is comfortable with no new complaints. No weakness, no headache, no numbness. Symptoms resolved. Objective - Vital Signs/Intake and Output Vital Signs (last 24 hours): Temp Pulse Resp BP Pulse Ox 98.3 F 67 18 138/80 100 06/04/17 06:00 06/04/17 06:00 06/04/17 06:00 06/04/17 06:00 06/04/17 06:00 Intake and Output: 06/04/17 06/04/17 06:59 18:59 Intake Total 1620 Balance 1620 - Medications Medications: Current Medications Albuterol/Ipratropium (Duoneb 3 Mg/0.5 Mg (3 Ml) Ud) 3 ml IH [id number] [facility] Last Admin: 06/04/17 08:33 Dose: 3 ml Aspirin (Ecotrin) 325 mg PO DAILY [facility] Last Admin: 06/04/17 10:30 Dose: 325 mg Atorvastatin Calcium (Lipitor) 40 mg PO DIN [facility] Last Admin: 06/03/17 17:51 Dose: 40 mg Escitalopram Oxalate (Lexapro) 30 mg PO DAILY [facility] Last Admin: 06/04/17 10:29 Dose: 30 mg Sodium Chloride (Sodium Chloride 0.9%) 1,000 mls @ 100 mls/hr IV .Q10H [facility] Last Admin: 06/04/17 07:14 Dose: 100 mls/hr Mycophenolate Mofetil (Cellcept Cap) 250 mg PO BID [facility] Last Admin: 06/04/17 10:29 Dose: 250 mg Pantoprazole Sodium (Protonix Ec Tab) 40 mg PO 0600 [facility] Last Admin: 06/04/17 07:16 Dose: 40 mg Quetiapine Fumarate (Seroquel) 12.5 mg PO HS [facility] PRN Reason: Protocol Last Admin: 06/03/17 22:21 Dose: 12.5 mg Tacrolimus (Prograf Cap) 1 mg PO Q12 [facility] Last Admin: 06/04/17 10:30 Dose: 1 mg - Labs Labs: 06/04/17 06:40 06/04/17 06:40 PT 11.9 SECONDS (9.4-12.5) 06/02/17 18:00 INR 1.00 (0.93-1.08) 06/02/17 18:00 APTT 29.7 Seconds (25.1-36.5) 06/02/17 18:00 - Neurological Exam Neurological Exam: Reflexes Normal Neuro motor strength exam: Left Upper Extremity: 5, Right Upper Extremity: 5, Left Lower Extremity: 5, Right Lower Extremity: 5 Assessment and Plan - Assessment and Plan (Free Text) Assessment: 56 yr old woman with most likely TIA. Stroke workup complete and normal. She has a history of liver transplant and will remain on aspirin. She will follow up on an outpatient basis.
--- NOTE | 2017-06-04 14:57 | CP.PCM.DIS ---
Provider - Provider Date of Admission: 06/02/17 21:06 Attending physician: Latasha Gonzales MD Primary care physician: Evangelina Martin MD Time Spent in preparation of Discharge (in minutes): 70 Hospital Course - Lab Results Lab Results: Most Recent Lab Values WBC 6.9 10^3/ul (4.5-11.0) 06/04/17 06:40 RBC 4.17 10^6/uL (3.5-6.1) 06/04/17 06:40 Hgb 11.1 g/dL (12.0-16.0) L 06/04/17 06:40 Hct 34.6 % (36.0-48.0) L 06/04/17 06:40 MCV 83.0 fl (80.0-105.0) 06/04/17 06:40 MCH 26.6 pg (25.0-35.0) 06/04/17 06:40 MCHC 32.1 g/dl (31.0-37.0) 06/04/17 06:40 RDW 14.1 % (11.5-14.5) 06/04/17 06:40 Plt Count 251 10^3/uL (120.0-450.0) 06/04/17 06:40 MPV 8.6 fl (7.0-11.0) 06/04/17 06:40 Gran % 56.0 % (50.0-68.0) 06/04/17 06:40 Lymph % (Auto) 36.2 % (22.0-35.0) H 06/04/17 06:40 [place] % (Auto) 5.8 % (1.0-6.0) 06/04/17 06:40 Eos % (Auto) 1.9 % (1.5-5.0) 06/04/17 06:40 Baso % (Auto) 0.1 % (0.0-3.0) 06/04/17 06:40 Gran # 3.84 (1.4-6.5) 06/04/17 06:40 Lymph # 2.5 (1.2-3.4) 06/04/17 06:40 [place] # 0.4 (0.1-0.6) 06/04/17 06:40 Eos # 0.1 (0.0-0.7) 06/04/17 06:40 Baso # 0.01 K/mm3 (0.0-2.0) 06/04/17 06:40 ESR 45 mm/hr (0.0-20.0) H 06/03/17 08:00 PT 11.9 SECONDS (9.4-12.5) 06/02/17 18:00 INR 1.00 (0.93-1.08) 06/02/17 18:00 APTT 29.7 Seconds (25.1-36.5) 06/02/17 18:00 Sodium 142 mmol/L (132-148) 06/04/17 06:40 Potassium 3.7 mmol/L (3.6-5.0) 06/04/17 06:40 Chloride 108 mmol/L (98-107) H 06/04/17 06:40 Carbon Dioxide 24 mmol/L (21-33) 06/04/17 06:40 Anion Gap 14 (10-20) 06/04/17 06:40 BUN 9 mg/dL (7-21) 06/04/17 06:40 Creatinine 0.9 mg/dl (0.7-1.2) 06/04/17 06:40 Est GFR ( Amer) > 60 06/04/17 06:40 Est GFR (Non-Af Amer) > 60 06/04/17 06:40 POC Glucose (mg/dL) 104 mg/dL (65-110) 06/04/17 11:27 Random Glucose 84 mg/dL (70-110) 06/04/17 06:40 Hemoglobin A1c 6.0 % (4.2-6.5) 06/03/17 09:00 Calcium 9.5 mg/dL (8.4-10.5) 06/04/17 06:40 Phosphorus 3.9 mg/dL (2.5-4.5) 06/02/17 18:00 Magnesium 1.7 mg/dL (1.7-2.2) 06/02/17 18:00 Total Bilirubin 0.3 mg/dL (0.2-1.3) 06/04/17 06:40 AST 23 U/L (14-36) 06/04/17 06:40 ALT 21 U/L (7-56) 06/04/17 06:40 Alkaline Phosphatase 91 U/L (38-126) 06/04/17 06:40 Troponin I < 0.01 ng/mL 06/02/17 18:00 C-React Prot High Sens 10.64 mg/L (1.00-3.00) H 06/03/17 08:00 NT-Pro-B Natriuret Pep 84.3 pg/mL (0-450) 06/02/17 18:00 Total Protein 7.0 g/dL (5.8-8.3) 06/04/17 06:40 Albumin 3.8 g/dL (3.0-4.8) 06/04/17 06:40 Globulin 3.2 gm/dL 06/04/17 06:40 Albumin/Globulin Ratio 1.2 (1.1-1.8) 06/04/17 06:40 Triglycerides 154 mg/dL (35-160) 06/03/17 07:05 Cholesterol 190 mg/dL (130-200) 06/03/17 07:05 LDL Cholesterol Direct 133 mg/dL (0-129) H 06/03/17 07:05 HDL Cholesterol 33 mg/dL (29-60) 06/03/17 07:05 Urine Color Yellow (YELLOW) 06/02/17 21:02 Urine Appearance Clear (CLEAR) 06/02/17 21: Urine pH 7.0 (4.7-8.0) 06/02/17 21:02 Ur Specific [place] 1.020 (1.005-1.035) 06/02/17 21:02 Urine Protein Negative mg/dL (<30 mg/dL) 06/02/17 21: Urine Glucose (UA) Negative mg/dL (NEGATIVE) 06/02/17 21:02 Urine Ketones Negative mg/dL (NEGATIVE) 06/02/17 21:02 Urine Blood Negative (NEGATIVE) 06/02/17 21: Urine Nitrate Negative (NEGATIVE) 06/02/17 21: Urine Bilirubin Negative (NEGATIVE) 06/02/17 21:02 Urine Urobilinogen 0.2 E.U./dL (<1 E.U./dL) 06/02/17 21:02 Ur Leukocyte Esterase Moderate Korey/uL (NEGATIVE) H 06/02/17 21:02 Urine RBC 0 - 2 /hpf (0-2) 06/02/17 21:02 Urine WBC 5 - 10 /hpf (0-6) 06/02/17 21:02 Ur Epithelial Cells 0 - 2 /hpf (0-5) 06/02/17 21:02 Urine Bacteria Few (NEG) 06/02/17 21:02 Urine Opiates Screen Negative (NEGATIVE) 06/02/17 22:33 Urine Methadone Screen Negative (NEGATIVE) 06/02/17 22:33 Ur Barbiturates Screen Negative (NEGATIVE) 06/02/17 22:33 Ur Phencyclidine Scrn Negative (NEGATIVE) 06/02/17 22:33 Ur Amphetamines Screen Negative (NEGATIVE) 06/02/17 22:33 U Benzodiazepines Scrn Negative (NEGATIVE) 06/02/17 22:33 U Oth Cocaine Metabols Negative (NEGATIVE) 06/02/17 22:33 U Cannabinoids Screen Negative (NEGATIVE) 06/02/17 22:33 Blood Type O POSITIVE 06/02/17 18:21 Blood Type Confirm O POSITIVE 06/03/17 07:05 Antibody Screen Negative 06/02/17 18:21 BBK History Checked No verified bt 06/02/17 18:21 Discharge Exam - Head Exam Head Exam: ATRAUMATIC, NORMAL INSPECTION, NORMOCEPHALIC Discharge Plan - Discharge Medications Prescriptions: Aspirin [Adult Aspirin Regimen] 81 mg PO DAILY #30 tablet. Atorvastatin [Lipitor] 20 mg PO HS #30 tab - Follow Up Plan Condition: FAIR Disposition: HOME/ ROUTINE Additional Instructions: Continue previous home medications. Please start Aspirin 81mg daily and Lipitor 20mg at bedtime daily. Please follow up with your primary care doctor. Referrals: Evangelina Martin MD [Primary Care Provider] -
[2017-06-04 18:04] VITALS: BP 136/84; PULSE 73; RESP 20; TEMP 90.4; O2SAT 97
--- NOTE | 2017-06-04 22:13 | CON ---
DATE: HISTORY OF PRESENT ILLNESS: The patient is a 56-year-old female with a history of depression and admitted to the hospital for bipolar disorder, who is being seen by Psychiatry for mood symptoms, left-sided weakness, confusion, and somnolent versus actual findings. I reviewed Barbie LOREDO's note from yesterday and I met with the patient at bedside today. the patient is quite friendly, well-oriented to month, year, location and circumstances. The patient reports that she is doing well and she slept; however, does not count how many hours that she sleeps. The patient denies any new concerns and reports that she is hopeful. Denies any issues with anxiety and has been tolerating prescribed medications well. She is coherent, generally goal directed, mildly elevated but not disorganized or expansive or scattered. She denies any history of perceptual disturbance and denies any paranoia. She is aware that she has been hospitalized so that we can help her, and nursing staff notes indicated that she has been in fair control and compliant with recommendations thus far. VITAL SIGNS AND LABORATORY WORK: Reviewed by this provider. RELEVANT PSYCHIATRIC MEDICATIONS: Include Lexapro 30 mg daily, Seroquel 12.5 mg q.h.s. IMPRESSION: Major depressive disorder in remission as the patient denies having any depressive symptoms at this time, rule out bipolar II disorder, though the patient does not actively show indications of unstable mood component, she is little elevated because of Christian, but not in any delusional component. RECOMMENDATIONS: We will continue with current treatment and medications. There appears to be no acute indications to change them at this time. Psychiatry will sign off at this time. Please re-consult as necessary if there are any acute changes in the patient's presentation. The patient may continue to follow up with Dr. Tori Berumen for psychiatric medications. Kenneth Ryan MD
== END 2017-06-04 18:50 | disposition home or self-care (01) ==
LOC: ED 17:38 → ERH 21:06 → 3RSO 06-03 00:58
PROVIDERS: ADMIT Internal Medicine; ATTEND Internal Medicine
DX: R47.81 Slurred speech (principal); R53.1 Weakness; I10 Essential (primary) hypertension; G89.29 Other chronic pain; E78.5 Hyperlipidemia, unspecified; Z94.4 Liver transplant status; R40.0 Somnolence; E66.3 Overweight; Z68.36 Body mass index [BMI] 36.0-36.9, adult; Z83.3 Family history of diabetes mellitus
CPT/HCPCS: 36415; 70450; 70496; 70498; 70551; 71045; 80053; 80061; 81001; 81240; 81241; 82948; 83036; 83735; 83880; 84100; 84484; 85025; 85300; 85303; 85306; 85610; 85651; 85730; 86140; 86850; 86900; 87086; 93005; 93306; 93880; 94640; 94760; 99285; G0378; G0480; J7040; J7507; J7517

== ENCOUNTER 2018-05-18 12:47 | Inpatient (IN) | payer BC ==
--- NOTE | 2018-05-18 13:28 | ED PDOC ---
Arrival/HPI - General Historian: Patient, Other (GI specialist) - History of Present Illness Narrative History of Present Illness (Text): 05/18/18 13:30 57F PMHx of HTN, chronic LBP and Liver Transplant presents with one week of blood in stools. Pt saw her PMD this morning Dr Wiley, who sent her directly to see her GI Dr Reynoso, who instructed the pt to come to the ED. Pt says that the stools have gotten less black in color, now they are brown. Pt still sees bright red blood in toilet. Pt states shes compliant with her home meds and follows up with all her doctors. ROS: Pos+ blood in stool, dizzy, SOB, fatigue, weak, loss of appetite, nauseau, vomiting (9 days ago), Neg- cp, fevers, chills, numbness/tingling, loss of conscience, falls, abd pain. 05/18/18 13:37 Time/Duration: < week Symptom Course: Improving Activities at Onset: Rest Context: Home <Wilton Ordoñez - Last Filed: 05/18/18 17:51> <Raji Bills - Last Filed: 05/18/18 18:01> - General Chief Complaint: GI Problem Time Seen by Provider: 05/18/18 12:48 Past Medical History - Provider Review Nursing Documentation Reviewed: Yes - Tetanus Immunization Tetanus Immunization: Unknown - Reproductive Menopause: Yes - Cardiac Hx Hypertension: Yes - Musculoskeletal/Rheumatological Hx Falls: No - Gastrointestinal Other/Comment: Auto-immune liver disease - Psychiatric Hx Anxiety: Yes Hx Substance Use: No - Surgical History Other/Comment: Liver transplant (2010) - Anesthesia Hx Anesthesia: Yes Hx Anesthesia Reactions: No Hx Malignant Hyperthermia: No - Suicidal Assessment Feels Threatened In Home Enviroment: No <Wilton Ordoñez - Last Filed: 05/18/18 17:51> Family/Social History - Physician Review Nursing Documentation Reviewed: Yes Family/Social History: Unknown Family HX Smoking Status: Never Smoked Hx Alcohol Use: No Hx Substance Use: No Hx Substance Use Treatment: No <Wilton Ordoñez - Last Filed: 05/18/18 17:51> Allergies/Home Meds <Wilton Ordoñez - Last Filed: 05/18/18 17:51> <SanjuRaji - Last Filed: 05/18/18 18:01> Allergies/Adverse Reactions: Allergies No Known Allergies Allergy (Verified 05/18/18 13:13) Home Medications: Home Meds Medication Instructions Recorded Confirmed Metoprolol Succinate 25 mg PO DAILY 05/14/14 05/18/18 Escitalopram Oxalate 30 mg PO DAILY 06/03/17 05/18/18 Mycophenolate [Cellcept Cap] 250 mg PO BID 06/03/17 05/18/18 Tacrolimus [Prograf Cap] 1 mg PO BID 06/03/17 05/18/18 Amlodipine Bes/Olmesartan Med 1 tab PO DAILY 05/18/18 05/18/18 [Anel 10 mg-40 mg] Review of Systems - Physician Review All systems were reviewed & negative as marked: Yes - Review of Systems Constitutional: Fatigue. absent: Fevers, Night Sweats Eyes: absent: Vision Changes Respiratory: SOB. absent: Cough Cardiovascular: absent: Chest Pain Gastrointestinal: Stool Changes, Hematochezia, Food Intolerance (9 days). absent: Abdominal Pain Genitourinary Female: absent: Hematuria Musculoskeletal: absent: Arthralgias, Myalgias Neurological: Dizziness <Wilton Ordoñez - Last Filed: 05/18/18 17:51> Physical Exam Vital Signs Reviewed: Yes Vital Signs Temp Pulse Resp BP Pulse Ox 05/18/18 13:02 98.6 F 64 19 140/82 98 Temperature: Afebrile Blood Pressure: Normal Pulse: Regular Respiratory Rate: Normal Appearance: Positive for: Well-Appearing Pain Distress: None Mental Status: Positive for: Alert and Oriented X 3 - Systems Exam Head: Present: Atraumatic, Normocephalic Pupils: Present: PERRL. No: Sluggish Extroacular Muscles: Present: EOMI. No: Gaze Palsy Conjunctiva: Present: Normal Mouth: Present: Moist Mucous Membranes Respiratory/Chest: Present: Clear to Auscultation. No: Respiratory Distress, Wheezes, Rales Cardiovascular: Present: Regular Rate and Rhythm, Normal S1, S2. No: Murmurs Abdomen: No: Rebound Upper Extremity: Present: NORMAL PULSES, Capillary Refill < 2s Lower Extremity: Present: Normal Inspection, NORMAL PULSES Neurological: Present: CN II-XII Intact Skin: Present: Warm, Dry, Normal Color Psychiatric: Present: Alert, Oriented x 3, Normal Affect (innappropriate, ) <Wilton Ordoñez - Last Filed: 05/18/18 17:51> Vital Signs Temp Pulse Resp BP Pulse Ox 05/18/18 13:02 98.6 F 64 19 140/82 98 <SanjuRaji - Last Filed: 05/18/18 18:01> Medical Decision Making ED Course and Treatment: 05/18/18 13:48 ED attending spoke with Dr Reynoso, f/u CBC CMP COAGs f/u CT ab pelv IV cont - RAD Interpretation Radiology Orders: 05/18/18 13:21 ABDOMEN & PELVIS [ABD PELVIS PO & IV CONTRAST] [CT] Stat <Wilton Ordoñez - Last Filed: 05/18/18 17:51> ED Course and Treatment: 05/18/18 14:00 57 year old female presents to the ED for evaluation of blood in stool. In agreement with resident note which contains more details about the patient. P atient seen and evaluated with resident. Came up with plan and treatment together. 05/18/18 17:56 follow up discussion with dr. reynoso, patient to be admitted primarily for the concern of reported melena. Recommends protonix 40mg BID, clear liquid diet for now, probable EGD. - Lab Interpretations Lab Results: 05/18/18 13:30 05/18/18 13:30 Lab Results 05/18/18 13:30: Blood Type Pending, Antibody Screen Pending, BBK History Checked Patient has bt 05/18/18 13:30: Sodium 141, Potassium 3.2 L, Chloride 108 H, Carbon Dioxide 23, Anion Gap 14, BUN 12, Creatinine 0.9, Est GFR ( Amer) > 60, Est GFR (Non- Af Amer) > 60, Random Glucose 136 H, Calcium 9.5, Total Bilirubin 0.4, AST 27, ALT 18, Alkaline Phosphatase 101, Total Protein 7.7, Albumin 4.3, Globulin 3.4, Albumin/Globulin Ratio 1.2 05/18/18 13:30: PT 12.6 H, INR 1.10, APTT 29.8 05/18/18 13:30: WBC 7.3, RBC 4.49, Hgb 11.7 L, Hct 36.1, MCV 80.4, MCH 26.1, MCHC 32.4, RDW 14.0, Plt Count 269, MPV 8.3, Gran % 46.5 L, Lymph % (Auto) 48.1 H, [place] % (Auto) 3.7, Eos % (Auto) 1.6, Baso % (Auto) 0.1, Gran # 3.38, Lymph # (Auto) 3.5 H, [place] # (Auto) 0.3, Eos # (Auto) 0.1, Baso # (Auto) 0.01 - RAD Interpretation Radiology Orders: 05/18/18 13:21 ABDOMEN & PELVIS [ABD PELVIS PO & IV CONTRAST] [CT] Stat <Raji Bills - Last Filed: 05/18/18 18:01> - PA / WOOD DRILLING MACHINE OPERATOR / Resident Statement MD/DO has reviewed & agrees with the documentation as recorded. MD/DO has examined the patient and agrees with the treatment plan. - Scribe Statement The provider has reviewed the documentation as recorded by the Scribe Rita Hines. All medical record entries made by the Scribe were at my direction and personally dictated by me. I have reviewed the chart and agree that the record accurately reflects my personal performance of the history, physical exam, medical decision making, and the department course for this patient. I have also personally directed, reviewed, and agree with the discharge instructions and disposition. <Raji Bills - Last Filed: 05/18/18 18:01> Disposition/Present on Arrival - Present on Arrival Any Indicators Present on Arrival: No History of DVT/PE: No History of Uncontrolled Diabetes: No Urinary Catheter: No History of Decub. Ulcer: No History Surgical Site Infection Following: None - Disposition Have Diagnosis and Disposition been Completed?: Yes Disposition Time: 17:52 Patient Plan: Admission <Wilton Ordoñez - Last Filed: 05/18/18 17:51> <Raji Bills - Last Filed: 05/18/18 18:01> - Disposition Diagnosis: Bleeding per rectum Disposition: HOSPITALIZED Patient Problems: Current Active Problems Problem Status Onset Bleeding per rectum Acute Condition: STABLE Forms: [email or web address] ([place])
[2018-05-18] MEDS ORDERED: Iohexol 240 (50 ml) ONE (13:29)
[2018-05-18 13:45] LABS: BASO # 0.01 K/mm3 (0.0-2.0); BASO % 0.1 % (0.0-3.0); EOS # 0.1 (0.0-0.7); EOS % 1.6 % (1.5-5.0); GRAN # 3.38 (1.4-6.5); GRAN % 46.5 % (50.0-68.0); HEMOGLOBIN 11.7 g/dL (12.0-16.0); LYMPH # 3.5 (1.2-3.4); LYMPH % 48.1 % (22.0-35.0); MEAN CELL VOLUME 80.4 fl (80.0-105.0); MEAN CORPUSCULAR HEMOGLOBIN 26.1 pg (25.0-35.0); MEAN CORPUSCULAR HGB CONC 32.4 g/dl (31.0-37.0); MEAN PLATELET VOLUME 8.3 fl (7.0-11.0); MONO # 0.3 (0.1-0.6); MONO % 3.7 % (1.0-6.0); RBC 4.49 10^6/uL (3.5-6.1); WHITE BLOOD COUNT 7.3 10^3/uL (4.5-11.0)
[2018-05-18 13:55] LABS: ALB/GLOB RATIO 1.2 (1.1-1.8); ALBUMIN 4.3 g/dL (3.0-4.8); ALT/SGPT 18 U/L (7-56); AST/SGOT 27 U/L (14-36); BLOOD UREA NITROGEN 12 mg/dL (7-21); CALCIUM 9.5 mg/dL (8.4-10.5); GFR NON-AFRICAN AMERICAN > 60; INR 1.1; PARTIAL THROMBOPLASTIN TIME 29.8 Seconds (25.1-36.5); PROTHROMBIN TIME 12.6 SECONDS (9.4-12.5)
--- NOTE | 2018-05-18 16:12 | CT ---
Date of service: 05/18/2018 PROCEDURE: CT Abdomen and Pelvis with contrast HISTORY: bloody stools, colitis? COMPARISON: None. TECHNIQUE: Intravenous contrast dose: 150 cc Omnipaque 350. Radiation dose: Total exam DLP = 1073.60 mGy-cm. This CT exam was performed using one or more of the following dose reduction techniques: Automated exposure control, adjustment of the mA and/or kV according to patient size, and/or use of iterative reconstruction technique. FINDINGS: LOWER THORAX: Unremarkable. LIVER: Unremarkable. No gross lesion or ductal dilatation. GALLBLADDER AND BILE DUCTS: Status post cholecystectomy. No abnormality is seen in the gallbladder fossa. PANCREAS: Unremarkable. No gross lesion or ductal dilatation. SPLEEN: Unremarkable. ADRENALS: Unremarkable. No mass. KIDNEYS AND URETERS: Unremarkable. No hydronephrosis. No solid mass. VASCULATURE: Unremarkable. No aortic aneurysm. No atherosclerotic calcification or mural plaque present. BOWEL: Unremarkable. No obstruction. No gross mural thickening. APPENDIX: A normal appendix is visualized in it's entirety. PERITONEUM: Unremarkable. No free fluid. No free air. LYMPH NODES: Unremarkable. No enlarged lymph nodes. BLADDER: Unremarkable. REPRODUCTIVE: Enlarged anteverted uterus likely containing fundal fibroids. The largest uterine mass measures 5.3 by 4 cm. BONES: No acute fracture. OTHER FINDINGS: None. IMPRESSION: No significant or acute findings to account for/ related to the clinical presentation. Additional benign and/or incidental findings described above.
[2018-05-18] MEDS ORDERED: Potassium Chloride 20 mEq ER Tab PO STA (17:53)
[2018-05-18] MEDS ORDERED: Morphine 2 mg/ml ISec IVP STA (18:19)
[2018-05-18] MEDS: Dextrose 5%/0.45% NS 1,000 ML IV SCH (19:19)
--- NOTE | 2018-05-18 21:15 | HP ---
DATE OF EXAM: 05/18/2018 HISTORY OF PRESENT ILLNESS: The patient is a 57-year-old who was seen by Dr. Reynoso because of her rectal bleeding. The patient states she was having intermittent rectal bleeding for the last [address] Wiley this morning who sent her to Dr. Reynoso and after Dr. Reynoso examined the patient, he referred her to the emergency room for further evaluation. The patient stated she has been having intermittent bleeding for almost 1 week, then it started to turn black, and still she has bright red bleeding here and there. PAST MEDICAL HISTORY: Significant for: 1. Hypertension. 2. Chronic back pain. PAST SURGICAL HISTORY: Significant for liver transplant in 2010. SOCIAL HISTORY: Denies smoking, drinking, or alcohol use. ALLERGIES: SHE IS NOT ALLERGIC TO ANY MEDICATIONS. MEDICATIONS AT HOME: She is on citalopram. She is on Anel. She is on Prograf, CellCept, and metoprolol. REVIEW OF SYSTEMS: Significant for feeling weak, dizzy, lightheaded at times, and complained of decreased appetite and nauseous at times. PHYSICAL EXAMINATION GENERAL: She is awake, alert, oriented, communicative. VITAL SIGNS: She is afebrile, pulse 55, respirations 18, blood pressure 142/69. LUNGS: Bilateral fair airflow. No rhonchi or crackle. HEART: S1 and S2 audible. ABDOMEN: Soft, nontender. No rebound. No guarding. NEUROLOGICAL: The patient is awake, alert, oriented, communicative. LABORATORY EXAM: WBC is 7.3, hemoglobin 11.7, hematocrit 36.1, platelets 269. PT 12.6, INR 1.10. Chemistry: Sodium 141, potassium 3.2, chloride 108, CO2 of 23, BUN 12, creatinine 0.9, blood sugar of 136. ASSESSMENT: 1. Gastrointestinal bleed, etiology unclear. 2. History of liver transplant, secondary to autoimmune disease. 3. Hypertension. 4. Chronic low back pain. PLAN: We will start the patient on IV fluids, keep her on clear liquid, monitor her H and H, Dr. Reynoso for consult. The patient had CT scan of the abdomen and pelvis done around 1 o'clock this morning and no significant acute finding was noted; however, the patient is status post cholecystectomy. We will follow up her electrolytes, CBC, and CMP in a.m. Martín Duarte MD [facility] # [id number]
[2018-05-18 22:13] VITALS: BMI 37.6
[2018-05-19] MEDS: Dextrose 5%/0.45% NS 1,000 ML IV SCH (06:38)
[2018-05-19 06:56] LABS: BASO # 0.01 K/mm3 (0.0-2.0); BASO % 0.2 % (0.0-3.0); EOS # 0.1 (0.0-0.7); EOS % 1.3 % (1.5-5.0); GRAN # 2.65 (1.4-6.5); GRAN % 48.8 % (50.0-68.0); HEMOGLOBIN 11.6 g/dL (12.0-16.0); LYMPH # 2.4 (1.2-3.4); LYMPH % 44.5 % (22.0-35.0); MEAN CELL VOLUME 81.1 fl (80.0-105.0); MEAN CORPUSCULAR HEMOGLOBIN 25.4 pg (25.0-35.0); MEAN CORPUSCULAR HGB CONC 31.4 g/dl (31.0-37.0); MEAN PLATELET VOLUME 8.6 fl (7.0-11.0); MONO # 0.3 (0.1-0.6); MONO % 5.2 % (1.0-6.0); RBC 4.56 10^6/uL (3.5-6.1); RED CELL DISTRIBUTION WIDTH 14.3 % (11.5-14.5); WHITE BLOOD COUNT 5.4 10^3/uL (4.5-11.0)
[2018-05-19 07:36] LABS: BLOOD UREA NITROGEN 8 mg/dL (7-21); CALCIUM 9.2 mg/dL (8.4-10.5); GFR NON-AFRICAN AMERICAN > 60
[2018-05-19 07:37] LABS: ALB/GLOB RATIO 1.2 (1.1-1.8); ALBUMIN 3.9 g/dL (3.0-4.8); ALT/SGPT 50 U/L (7-56); AST/SGOT 89 U/L (14-36)
[2018-05-19] MEDS: Metoprolol Succinate 25 mg XL Tab PO SCH (09:12)
--- NOTE | 2018-05-19 09:39 | CP.PCM.CON ---
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 The patient first noted epigastric abdominal pain radiating to her mid-back 10 days prior to admission. Symptoms were less significant at onset with mild indigestion and progressed to severe stabbing pain which would require her to rest for relief. Denies using any OTC medications for her symptoms. One week prior to admission she had a single episode of hematochezia which was later followed by episodes of melena. She presented to her PCP yesterday for evaluation and was referred to Dr Reynoso who then sent the patient to the ED for further evaluation. A CT performed in the ED was unremarkable and initial lab work was at baseline. The patient denies any recent illnesses, sick contacts or travel. Denies fever, chills, weight loss, nausea, vomiting. 12 system ROS performed and negative except where stated PMHx: See HPI PSHx: Orthotopic liver transplant (2010) FHx: Discussed with inderjit and she denies significant family history Social: Denies tobacco, EtOH or illicit drug use Endo: Previously performed at OSH - EGD/colonoscopy 11/2017, no records for review Past Patient History - Tetanus Immunizations Tetanus Immunization: Unknown - Past Social History Smoking Status: Never Smoked - CARDIAC Hx Hypertension: Yes - MUSCULOSKELETAL/RHEUMATOLOGICAL Hx Falls: No - GASTROINTESTINAL Hx Liver Failure: Yes - PSYCHIATRIC Hx Anxiety: Yes Hx Substance Use: No - SURGICAL HISTORY Hx Liver Transplant: Yes - ANESTHESIA Hx Anesthesia: Yes Hx Anesthesia Reactions: No Hx Malignant Hyperthermia: No Meds Allergies/Adverse Reactions: Allergies Allergy/AdvReac Type Severity Reaction Status Date / Time No Known Allergies Allergy Verified 05/18/18 13:13 - Medications Medications: Current Medications Acetaminophen (Tylenol 325mg Tab) 650 mg PO Q6H PRN PRN Reason: Fever >100.4 F Escitalopram Oxalate (Lexapro) 30 mg PO DAILY [facility] Last Admin: 05/19/18 09:11 Dose: 30 mg Dextrose/Sodium Chloride (Dextrose 5%/0.45% Ns 1000 Ml) 1,000 mls @ 100 mls/hr IV .Q10H [facility] Last Admin: 05/19/18 06:38 Dose: 100 mls/hr Metoprolol Succinate (Toprol Xl) 25 mg PO DAILY [facility] Last Admin: 05/19/18 09:12 Dose: 25 mg Mycophenolate Mofetil (Cellcept Cap) 250 mg PO BID [facility] Last Admin: 05/19/18 09:15 Dose: 250 mg Ondansetron HCl (Zofran Inj) 4 mg IVP Q6H PRN PRN Reason: Nausea/Vomiting Pantoprazole Sodium (Protonix Inj) 40 mg IVP DAILY [facility] Last Admin: 05/19/18 09:15 Dose: 40 mg Tacrolimus (Prograf Cap) 1 mg PO BID [facility] Last Admin: 05/19/18 09:12 Dose: 1 mg Physical Exam - Constitutional Appears: Non-toxic, No Acute Distress - Eye Exam Eye Exam: EOMI, PERRL - ENT Exam ENT Exam: Mucous Membranes Moist - Respiratory Exam Respiratory Exam: Clear to Auscultation Bilateral. absent: Rales, Rhonchi, Wheezes - Cardiovascular Exam Cardiovascular Exam: RRR, +S1, +S2 - GI/Abdominal Exam GI & Abdominal Exam: Normal Bowel Sounds, Soft, Tenderness (epigastric). absent: Distended, Firm, Guarding, Organomegaly, Rigid Additional comments: scars from prior OLT - Extremities Exam Extremities exam: Positive for: normal inspection. Negative for: pedal edema - Neurological Exam Neurological exam: Alert, Oriented x3 - Psychiatric Exam Psychiatric exam: Normal Affect, Normal Mood - Skin Skin Exam: Dry, Warm Results - Vital Signs Recent Vital Signs: Last Vital Signs Temp 98.6 F 05/19/18 06:00 Pulse 56 L 05/19/18 06:00 Resp 20 05/19/18 06:00 BP 120/70 05/19/18 09:12 Pulse Ox 98 05/19/18 06:00 - Labs Result Diagrams: 05/19/18 06:30 05/19/18 06:30 Labs: Laboratory Results - last 24 hr 05/18/18 05/18/18 05/18/18 13:30 13:30 13:30 WBC 7.3 RBC 4.49 Hgb 11.7 L Hct 36.1 MCV 80.4 MCH 26.1 MCHC 32.4 RDW 14.0 Plt Count 269 MPV 8.3 Gran % 46.5 L Lymph % (Auto) 48.1 H [place] % (Auto) 3.7 Eos % (Auto) 1.6 Baso % (Auto) 0.1 Gran # 3.38 Lymph # (Auto) 3.5 H [place] # (Auto) 0.3 Eos # (Auto) 0.1 Baso # (Auto) 0.01 PT 12.6 H INR 1.10 APTT 29.8 Sodium 141 Potassium 3.2 L Chloride 108 H Carbon Dioxide 23 Anion Gap 14 BUN 12 Creatinine 0.9 Est GFR ( Amer) > 60 Est GFR (Non-Af Amer) > 60 Random Glucose 136 H Calcium 9.5 Total Bilirubin 0.4 AST 27 ALT 18 Alkaline Phosphatase 101 Total Protein 7.7 Albumin 4.3 Globulin 3.4 Albumin/Globulin Ratio 1.2 Blood Type Antibody Screen BBK History Checked 05/18/18 05/19/18 05/19/18 13:30 06:30 06:30 WBC 5.4 D RBC 4.56 Hgb 11.6 L Hct 37.0 MCV 81.1 MCH 25.4 MCHC 31.4 RDW 14.3 Plt Count 273 MPV 8.6 Gran % 48.8 L Lymph % (Auto) 44.5 H [place] % (Auto) 5.2 Eos % (Auto) 1.3 L Baso % (Auto) 0.2 Gran # 2.65 Lymph # (Auto) 2.4 [place] # (Auto) 0.3 Eos # (Auto) 0.1 Baso # (Auto) 0.01 PT INR APTT Sodium 141 Potassium 3.9 Chloride 107 Carbon Dioxide 26 Anion Gap 11 BUN 8 Creatinine 0.8 Est GFR ( Amer) > 60 Est GFR (Non-Af Amer) > 60 Random Glucose 97 Calcium 9.2 Total Bilirubin 0.4 AST 89 H D ALT 50 Alkaline Phosphatase 99 Total Protein 7.2 Albumin 3.9 Globulin 3.3 Albumin/Globulin Ratio 1.2 Blood Type O POSITIVE Antibody Screen Negative BBK History Checked Patient has bt Assessment & Plan - Assessment and Plan (Free Text) Assessment: Patient is a 57yo female with PMHx significant for cirrhosis 2/2 drug induced li keira injury and autoimmune hepatitis s/p OLT in 2010 at [facility] 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, currently on immunosuppression with Tacrolimus and Mycophenolate who presented to the hospital with abdominal pain and rectal bleeding -Abdominal pain and hematochezia -Elevated LFTs -History of liver transplant on immunosuppression Plan: -Case discussed with [facility] staff regarding history, immunosuppression dosing and ongoing care -Continue immunosuppression with Tacrolimus 1mg PO BID and Mycophenolate 750mg PO BID -Suspect elevation in LFTs 2/2 inadvertent underdosage of Mycophenolate -Monitor LFTs, kidney function and CBC -Plan for EGD today given melena/hematochezia over the last week -NPO except medications - Date & Time Date: 05/19/18 Time: 08:00 <Katharina Reynoso V - Last Filed: 05/20/18 22:49> Results - Vital Signs Recent Vital Signs: Last Vital Signs Temp 98.3 F 05/20/18 08:48 Pulse 52 L 05/20/18 08:48 Resp 18 05/20/18 08:48 BP 136/74 05/20/18 09:46 Pulse Ox 97 05/20/18 08:48 - Labs Result Diagrams: 05/20/18 07:30 05/20/18 07:30 Labs: Laboratory Results - last 24 hr 05/20/18 05/20/18 07:30 07:30 WBC 6.6 D RBC 4.52 Hgb 11.6 L Hct 36.6 MCV 81.0 MCH 25.7 MCHC 31.7 RDW 14.0 Plt Count 272 MPV 8.6 Gran % 44.0 L Lymph % (Auto) 50.8 H [place] % (Auto) 3.8 Eos % (Auto) 1.2 L Baso % (Auto) 0.2 Gran # 2.92 Lymph # (Auto) 3.4 [place] # (Auto) 0.3 Eos # (Auto) 0.1 Baso # (Auto) 0.01 Sodium 141 Potassium 4.0 Chloride 110 H Carbon Dioxide 25 Anion Gap 11 BUN 9 Creatinine 0.8 Est GFR ( Amer) > 60 Est GFR (Non-Af Amer) > 60 Random Glucose 82 Calcium 9.3 Total Bilirubin 0.3 AST 40 H D ALT 39 Alkaline Phosphatase 104 Total Protein 7.4 Albumin 4.0 Globulin 3.4 Albumin/Globulin Ratio 1.2 Attending/Attestation - Attestation I have personally seen and examined this patient.: Yes I have fully participated in the care of the patient.: Yes I have reviewed all pertinent clinical information: Yes Notes (Text): This is an addendum to GI consult report dictated by the GI Fellow. The patient was seen and examined earlier. Medical records, lab studies, imagings were reviewed. Last 24 hours events reviewed. Agreed with the above treatment plan as outlined in GI Fellow 's notes with the addition of the following patient had episodes of dark stool Scheduled for an EGD to further evaluate Patient did have EGD and colonoscopy in the past at the [facility] post transplant Post transplant medications were reviewed follow-up LFT, if it shows upward trend will discuss with bird raiser at the [facility] regarding further evaluation 05/20/18 22:44
[2018-05-19] MEDS ORDERED: Sodium Chloride 0.9% 1,000 ML IV SCH (14:45)
[2018-05-19] MEDS ORDERED: Propofol 10 mg/ml Inj (20 ML) ONE ×2 (15:03→15:04)
[2018-05-19 15:51] VITALS: RESP 18
--- NOTE | 2018-05-20 02:28 | PN ---
DATE: 05/19/2018 SUBJECTIVE: The patient is a 57-year-old, seen and examined, doing well. She states she had some rectal bleeding this morning; blood was not fresh red, a bit maroonish. Denies any chest pain. No shortness of breath. PHYSICAL EXAMINATION: VITAL SIGNS: She is afebrile, pulse 54, respirations 18, blood pressure 115/60. LUNGS: Bilateral fair airflow. No rhonchi or crackle. HEART: S1, S2 audible. ABDOMEN: Soft, nontender. No rebound. No guarding. NEUROLOGIC: The patient is awake, alert, oriented, communicate. LABORATORY DATA: WBC is 5.4, hemoglobin 11.6, hematocrit 37, platelets 273. Chemistry; sodium 141, potassium 3.9, chloride 107, CO2 of 23, BUN 8, creatinine 0.9, blood sugar 89. When I saw the patient earlier, she was waiting for endoscopy that was done and showed no endoscopic evidence of bleeding, erythema, inflammation or ulcer. ASSESSMENT: 1. Gastrointestinal bleed, etiology still unclear since endoscopy is negative. 2. History of liver transplant, secondary to autoimmune disease. 3. History of hypertension. 4. Chronic back pain. PLAN: We will follow CBC, CMP in a.m. We will continue Protonix. We will discuss with Dr. Reynoso. The patient states she had colonoscopy done couple of months ago and everything was found to be normal. We will re-evaluate the patient in a.m. We will make disposition plan. Martín Duarte MD
[2018-05-20 08:22] LABS: BASO # 0.01 K/mm3 (0.0-2.0); BASO % 0.2 % (0.0-3.0); EOS # 0.1 (0.0-0.7); EOS % 1.2 % (1.5-5.0); GRAN # 2.92 (1.4-6.5); HEMOGLOBIN 11.6 g/dL (12.0-16.0); LYMPH # 3.4 (1.2-3.4); LYMPH % 50.8 % (22.0-35.0); MEAN CORPUSCULAR HEMOGLOBIN 25.7 pg (25.0-35.0); MEAN CORPUSCULAR HGB CONC 31.7 g/dl (31.0-37.0); MEAN PLATELET VOLUME 8.6 fl (7.0-11.0); MONO # 0.3 (0.1-0.6); MONO % 3.8 % (1.0-6.0); RBC 4.52 10^6/uL (3.5-6.1); WHITE BLOOD COUNT 6.6 10^3/uL (4.5-11.0)
[2018-05-20 08:35] LABS: ALB/GLOB RATIO 1.2 (1.1-1.8); ALT/SGPT 39 U/L (7-56); AST/SGOT 40 U/L (14-36); BLOOD UREA NITROGEN 9 mg/dL (7-21); CALCIUM 9.3 mg/dL (8.4-10.5); GFR NON-AFRICAN AMERICAN > 60
[2018-05-20 08:49] VITALS: PULSE 52; TEMP 98.3; O2SAT 97
[2018-05-20] MEDS: Metoprolol Succinate 25 mg XL Tab PO SCH (09:46)
[2018-05-20 09:50] VITALS: BP 136/74
--- NOTE | 2018-05-20 14:24 | CP.PCM.PN ---
<Rich Gutierrez - Last Filed: 05/20/18 14:18> Subjective - Date & Time of Evaluation Date of Evaluation: 05/20/18 Time of Evaluation: 11:30 - Subjective Subjective: PGY-4 GI Fellow Prog Note Pt sitting up in bed when seen this AM. States she is doing well and eager for possible DC. Abd pain improved and no signs of bleeding noted. 5 point ROS negative other than stated above Objective - Vital Signs/Intake and Output Vital Signs (last 24 hours): Temp Pulse Resp BP Pulse Ox 98.3 F 52 L 18 136/74 97 05/20/18 08:48 05/20/18 08:48 05/20/18 08:48 05/20/18 09:46 05/20/18 08:48 Intake and Output: 05/20/18 05/20/18 06:59 18:59 Intake Total 900 Balance 900 - Medications Medications: Current Medications Acetaminophen (Tylenol 325mg Tab) 650 mg PO Q6H PRN PRN Reason: Fever >100.4 F Escitalopram Oxalate (Lexapro) 30 mg PO DAILY [facility] Last Admin: 05/20/18 09:46 Dose: 30 mg Dextrose/Sodium Chloride (Dextrose 5%/0.45% Ns 1000 Ml) 1,000 mls @ 100 mls/hr IV .Q10H [facility] Last Admin: 05/19/18 06:38 Dose: 100 mls/hr Metoprolol Succinate (Toprol Xl) 25 mg PO DAILY [facility] Last Admin: 05/20/18 09:46 Dose: 25 mg Mycophenolate Mofetil (Cellcept Cap) 750 mg PO BID [facility] Last Admin: 05/20/18 09:45 Dose: 750 mg Ondansetron HCl (Zofran Inj) 4 mg IVP Q6H PRN PRN Reason: Nausea/Vomiting Pantoprazole Sodium (Protonix Inj) 40 mg IVP DAILY [facility] Last Admin: 05/20/18 09:46 Dose: 40 mg Tacrolimus (Prograf Cap) 1 mg PO BID [facility] Last Admin: 05/20/18 09:46 Dose: 1 mg - Labs Labs: 05/20/18 07:30 05/20/18 07:30 PT 12.6 SECONDS (9.4-12.5) H 05/18/18 13:30 INR 1.10 05/18/18 13:30 APTT 29.8 Seconds (25.1-36.5) 05/18/18 13:30 - Constitutional Appears: Well, No Acute Distress, Other (Obese) - Head Exam Head Exam: ATRAUMATIC, NORMAL INSPECTION - Eye Exam Eye Exam: EOMI. absent: Scleral icterus - ENT Exam ENT Exam: Mucous Membranes Moist. absent: Mucous Membranes Dry - Respiratory Exam Respiratory Exam: NORMAL BREATHING PATTERN. absent: Accessory Muscle Use, Respiratory Distress - GI/Abdominal Exam GI & Abdominal Exam: Soft, Normal Bowel Sounds. 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 No signs of bleeding on EGD. -Elevated LFTs: Improved -History of liver transplant on immunosuppression Plan: -Case discussed with [facility] staff regarding history, immunosuppression dosing and ongoing care --- She expressed understanding of close follow-up at -Continue immunosuppression with Tacrolimus 1mg PO BID and Mycophenolate 750mg PO BID - Famotidine PO BID for gastric erosions, avoid PPI given immunosuppresion medication interactions - Soft diet - OK to DC from GI standpoint Pt seen and examined with Dr. Reynoso; please see attestation for further recs/changes Rich Gutierrez, PGY-4 <Katharina Reynoso V - Last Filed: 05/20/18 22:51> Objective - Vital Signs/Intake and Output Vital Signs (last 24 hours): Temp Pulse Resp BP Pulse Ox 98.3 F 52 L 18 136/74 97 05/20/18 08:48 05/20/18 08:48 05/20/18 08:48 05/20/18 09:46 05/20/18 08:48 - Labs Labs: 05/20/18 07:30 05/20/18 07:30 PT 12.6 SECONDS (9.4-12.5) H 05/18/18 13:30 INR 1.10 05/18/18 13:30 APTT 29.8 Seconds (25.1-36.5) 05/18/18 13:30 Attending/Attestation - Attestation I have personally seen and examined this patient.: Yes I have fully participated in the care of the patient.: Yes I have reviewed all pertinent clinical information, including history, physical exam and plan: Yes Notes (Text): LFT shows downward trend EGD findings were review Follow-up biopsy report Patient is tolerating with no further episodes of mata Will start the patient on Pe 20 mg by mouth twice a day Would avoid PPI view of drug interaction with CellCept Patient was advised to follow-up a [facility] liver unit Follow-up with primary ph Follow-up in our office 05/20/18 22:49
--- NOTE | 2018-05-20 15:16 | DS ---
HISTORY OF PRESENT ILLNESS: The patient is 57-year-old who came to emergency room on 05/18/2018 with complain of black stools. The patient has colonoscopy done couple of months ago and was unremarkable. The patient underwent endoscopy yesterday, shows gastritis. PAST MEDICAL HISTORY: The patient does have past medical history significant for hypertension, history of liver transplant because of autoimmune disease, history of depression and hypertension. So the patient was evaluated by Dr. Garner underwent endoscopy, negative for rectal bleed. PHYSICAL EXAMINATION: GENERAL: She is awake, alert, oriented and communicative. VITAL SIGNS: She is afebrile. Pulse 52, respiration 18 and blood pressure 136/74. LUNGS: Bilateral fair airflow. No rhonchi or crackle. HEART: S1 and S2, audible. ABDOMEN: Soft and nontender. No rebound. No guarding. NEUROLOGIC: The patient is awake, alert and able to communicate. LABORATORY DATA: WBC 6.6, hemoglobin 11.6, hematocrit 36 and platelet 272. PT 12.6 and INR 1.10. Chemistry; sodium 141, potassium 4.0, chloride 110, CO2 of 25,BUN 9, creatinine 0.8, blood sugar of 82 and AST 40. ASSESSMENT: 1. Gastrointestinal bleed, etiology still unclear. No active upper gastrointestinal bleeding. 2. Status post liver transplant in 2010 because of autoimmune disease. 3. Hypertension. 4. History of depression. PLAN: The patient is going to be discharge home today. She is advised to continue her Citalopram. She will continue Anel. She will be on Prograf and she is on CellCept 750 twice a day. So plan is the patient is going to be discharge home on Cellcept 750 twice a day. She is going to take . She is going to continue Anel, Prograf 1 mg twice a day, metoprolol 25 mg daily. She will followup with her transplant team. Dr. Garner spoke to the fellow transplanting and she will get appointment with the next week or two or with her primary care. Martín Duarte MD [facility] # [phone]
== END 2018-05-20 18:27 | disposition home or self-care (01) | DRG 378 ==
LOC: ED 12:47 → ERH 17:50 → 5RNO 20:23
PROVIDERS: ADMIT Internal Medicine; ATTEND Internal Medicine
PROC: 0DJ08ZZ Inspection of Upper Intestinal Tract, Via Natural or Artificial Opening Endoscopic (ICD-10-PCS; principal; 2018-05-19 17:15)
DX: K92.1 Melena (principal); Z94.4 Liver transplant status; I10 Essential (primary) hypertension; K29.70 Gastritis, unspecified, without bleeding; K75.4 Autoimmune hepatitis; K74.60 Unspecified cirrhosis of liver; F32.9 Major depressive disorder, single episode, unspecified; M54.5 Low back pain; Z79.899 Other long term (current) drug therapy

== ENCOUNTER 2018-08-15 07:07 | Emergency (ER) | payer BC ==
[2018-08-15 07:08] VITALS: BMI 37.6
[2018-08-15 07:50] VITALS: TEMP 98.1
--- NOTE | 2018-08-15 08:07 | ED PDOC ---
Arrival/HPI - General Chief Complaint: High Blood Pressure Historian: Patient - History of Present Illness Narrative History of Present Illness (Text): 08/15/18 08:06 57 year old female, whose past medical history includes HTN, chronic LBP and Liver Transplant, presents to the emergency department complaining of elevated blood pressure yesterday with eye pain that began this morning. Patient reports eye pressure and pain that began 4-5 hours ago. 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 Diamond. Patient refused to allow me to do an eye exam. Patient reports headache and photophobia, but denies any fever, chills, chest pain, shortness of breath, nausea, vomiting, diarrhea, urinary symptoms, back pain, neck pain, dizziness, or any other complaints. PMD: Dr. Wiley Time/Duration: Other (2-3 days) Symptom Onset: Gradual Symptom Course: Unchanged Activities at Onset: Light Context: Home Past Medical History - Provider Review Nursing Documentation Reviewed: Yes - Infectious Disease Hx of Infectious Diseases: None - Tetanus Immunization Tetanus Immunization: Unknown - Reproductive Menopause: No - Cardiac Hx Hypertension: Yes - Hematological/Oncological Hx Blood Transfusions: No - Musculoskeletal/Rheumatological Hx Falls: No - Gastrointestinal Hx Liver Failure: Yes - Psychiatric Hx Anxiety: Yes Hx Substance Use: No - Surgical History Hx Liver Transplant: Yes - Anesthesia Hx Anesthesia: Yes Hx Anesthesia Reactions: No Hx Malignant Hyperthermia: No - Suicidal Assessment Feels Threatened In Home Enviroment: No Family/Social History - Physician Review Nursing Documentation Reviewed: Yes Family/Social History: No Known Family HX Smoking Status: Never Smoked Hx Alcohol Use: No Hx Substance Use: No Hx Substance Use Treatment: No Allergies/Home Meds Allergies/Adverse Reactions: Allergies No Known Allergies Allergy (Verified 05/18/18 13:13) Home Medications: Home Meds Medication Instructions Recorded Confirmed Metoprolol Succinate 25 mg PO DAILY 05/14/14 08/15/18 Escitalopram Oxalate 30 mg PO DAILY 06/03/17 08/15/18 Mycophenolate [Cellcept Cap] 750 mg PO BID 06/03/17 08/15/18 Tacrolimus [Prograf Cap] 1 mg PO BID 06/03/17 08/15/18 Amlodipine Bes/Olmesartan Med 1 tab PO DAILY 05/18/18 08/15/18 [Anel 10 mg-40 mg] Review of Systems - Physician Review All systems were reviewed & negative as marked: Yes - Review of Systems Constitutional: absent: Fevers, Other (chills) Eyes: Photophobia, Eye Pain, Other (eye pressure) Respiratory: absent: SOB Cardiovascular: absent: Chest Pain Gastrointestinal: absent: Diarrhea, Nausea, Vomiting Musculoskeletal: absent: Back Pain, Neck Pain Neurological: Headache. absent: Dizziness Physical Exam Vital Signs Reviewed: Yes Vital Signs Temp Pulse Resp BP Pulse Ox 08/15/18 07:48 98.1 F 60 16 177/98 H 100 08/15/18 07:17 97.5 F L 72 18 185/106 H 99 Temperature: Afebrile Blood Pressure: Hypertensive Pulse: Regular Respiratory Rate: Normal Appearance: Positive for: Well-Appearing, Non-Toxic, Comfortable Pain Distress: None Mental Status: Positive for: Alert and Oriented X 3 Finger Stick Blood Glucose: 82 - Systems Exam Head: Present: Atraumatic, Normocephalic, Other (limited eye exam due to patient refusing. ) Pupils: Present: PERRL Extroacular Muscles: Present: EOMI Conjunctiva: Present: Normal Mouth: Present: Moist Mucous Membranes Neck: Present: Normal Range of Motion Respiratory/Chest: Present: Clear to Auscultation, Good Air Exchange. No: Respiratory Distress, Accessory Muscle Use Cardiovascular: Present: Regular Rate and Rhythm, Normal S1, S2. No: Murmurs Abdomen: No: Tenderness, Distention, Peritoneal Signs Back: Present: Normal Inspection Upper Extremity: Present: Normal Inspection. No: Cyanosis, Edema Lower Extremity: Present: Normal Inspection. No: Edema Neurological: Present: GCS=15, CN II-XII Intact, Speech Normal Skin: Present: Warm, Dry, Normal Color. No: Rashes Psychiatric: Present: Alert, Oriented x 3, Normal Insight, Normal Concentration Medical Decision Making ED Course and Treatment: 08/15/18 08:06 Impression: 57 year old female presents complaining of elevated blood pressure that began yesterday associated with eye pressure/pain and headache that began 4-5 hours ago. Patient refused an eye exam. Plan: -- CT head w.o contrast -- EKG -- Labs -- Reglan, IV Fluids, Toradol -- Urinalysis -- Reassess and disposition Prior Visits: Notes and results from previous visits were reviewed. Progress Notes: EKG shows Sinus bradycardia at 57 BPM with 1st degree AV block. Interpreted by me. PROCEDURE: CT HEAD WITHOUT CONTRAST. Dictator : Inder Stafford MD Report Date : 08/15/2018 11:01:42 IMPRESSION: Normal CT of the Head. Chest X-ray Dictator : Dorina Bangura MD Report Date : 08/15/2018 11:24:44 IMPRESSION: No active pulmonary disease. 08/15/18 11:45 On re-evaluation, patient feels better and is in no acute distress. I have discussed the results and plan with the patient, who expresses understanding. Patient in agreement with plan to be discharged home. Patient is stable for discharge. Patient was instructed to follow up with physician or return if symptoms worsen or new concerning symptoms arise. 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 I have reviewed the chart and agree that the record accurately reflects my personal performance of the history, physical exam, medical decision making, and the department course for this patient. I have also personally directed, reviewed, and agree with the discharge instructions and disposition. Disposition/Present on Arrival - Present on Arrival Any Indicators Present on Arrival: No History of DVT/PE: No History of Uncontrolled Diabetes: No Urinary Catheter: No History of Decub. Ulcer: No History Surgical Site Infection Following: None - Disposition Have Diagnosis and Disposition been Completed?: Yes Diagnosis: Headache, Hypertension Disposition: HOME/ ROUTINE Disposition Time: 11:00 Condition: IMPROVED Discharge Instructions (ExitCare): High Blood Pressure (DC) Additional Instructions: MAGALY WILKS, thank you for letting us take care of you today. The emergency medical care you received today was directed at your acute symptoms. If you were prescribed any medication, please fill it and take as directed. It may take several days for your symptoms to resolve. Return to the Emergency Department if your symptoms worsen, do not improve, or if you have any other problems. Please contact your doctor or call one of the physicians/clinics you have been referred to that are listed on the Patient Visit Information form that is included in your discharge packet. Bring any paperwork you were given at discharge with you along with any medications you are taking to your follow up visit. Our treatment cannot replace ongoing medical care by a primary care provider outside of the emergency department. Thank you for allowing the [facility] team to be part of your care today. Follow up with your eye doctor in 1-2 days for re-evaluation. Follow up with your primary care doctor in 3-4 days for re-evaluation and further management. Prescriptions: Ibuprofen [Motrin] 600 mg PO Q6 PRN #10 tab PRN Reason: Pain, Moderate (4-7) [facility] - Follow up with primary Forms: [place] (Burkinan)
[2018-08-15 08:15] LABS: BASO # 0.01 K/mm3 (0.0-2.0); BASO % 0.1 % (0.0-3.0); EOS # 0.1 (0.0-0.7); EOS % 0.8 % (1.5-5.0); HEMOGLOBIN 12.4 g/dL (12.0-16.0); LYMPH # 2.4 (1.2-3.4); LYMPH % 34.1 % (22.0-35.0); MEAN CELL VOLUME 81.6 fl (80.0-105.0); MEAN CORPUSCULAR HEMOGLOBIN 25.6 pg (25.0-35.0); MEAN CORPUSCULAR HGB CONC 31.3 g/dl (31.0-37.0); MEAN PLATELET VOLUME 8.7 fl (7.0-11.0); MONO # 0.3 (0.1-0.6); MONO % 4.2 % (1.0-6.0); RBC 4.85 10^6/uL (3.5-6.1); RED CELL DISTRIBUTION WIDTH 16.1 % (11.5-14.5); WHITE BLOOD COUNT 7.2 10^3/uL (4.5-11.0)
[2018-08-15] MEDS ORDERED: Sodium Chloride 0.9% 1,000 ML IV SCH (08:15)
[2018-08-15 08:37] LABS: ALBUMIN 4.2 g/dL (3.0-4.8); AST/SGOT 28 U/L (14-36); BLOOD UREA NITROGEN 14 mg/dL (7-21); CALCIUM 9.8 mg/dL (8.4-10.5); GFR NON-AFRICAN AMERICAN > 60
[2018-08-15 08:42] LABS: ALT/SGPT < 6 U/L (7-56)
[2018-08-15 08:46] LABS: TROPONIN I < 0.01 ng/mL
--- NOTE | 2018-08-15 11:05 | CT ---
Date of service: 08/15/2018 PROCEDURE: CT HEAD WITHOUT CONTRAST. HISTORY: r/o ICH COMPARISON: None available. TECHNIQUE: Axial computed tomography images were obtained through the head/brain without intravenous contrast. Radiation dose: Total exam DLP = 958.68 mGy-cm. This CT exam was performed using one or more of the following dose reduction techniques: Automated exposure control, adjustment of the mA and/or kV according to patient size, and/or use of iterative reconstruction technique. FINDINGS: HEMORRHAGE: No intracranial hemorrhage. BRAIN: No mass effect or edema. No atrophy or chronic microvascular ischemic changes. VENTRICLES: Unremarkable. No hydrocephalus. CALVARIUM: Unremarkable. PARANASAL SINUSES: Unremarkable as visualized. No significant inflammatory changes. MASTOID AIR CELLS: Unremarkable as visualized. No inflammatory changes. OTHER FINDINGS: None. IMPRESSION: Normal CT of the Head.
--- NOTE | 2018-08-15 11:28 | RAD ---
Date of service: 08/15/2018 HISTORY: r/o infiltrate COMPARISON: 06/02/2017. FINDINGS: LUNGS: The lungs are well inflated and clear. PLEURA: No pleural effusions or pneumothorax. CARDIOVASCULAR: The heart is normal in size. No aortic atherosclerotic calcifications present. OSSEOUS STRUCTURES: Within normal limits for the patient's age. VISUALIZED UPPER ABDOMEN: Normal. OTHER FINDINGS: None. IMPRESSION: No active pulmonary disease.
[2018-08-15 11:55] VITALS: BP 138/68; PULSE 68; RESP 18; O2SAT 99
--- NOTE | 2018-08-15 19:23 | CARD ---
APPROVED REPORT Date of service: 08/15/2018 EKG Measurement Heart [id number] <Conclusion> Sinus bradycardia Otherwise normal ECG
== END 2018-08-15 11:57 | disposition home or self-care (01) ==
LOC: ED 07:07
DX: R51 Headache (principal); I10 Essential (primary) hypertension; Z94.4 Liver transplant status
CPT/HCPCS: 70450; 71045; 80053; 82550; 82948; 83615; 83735; 84484; 85025; 93005; 96361; 96374; 96375; 99284; J1885; J2765; J7030